=== PATIENT | female | born 1950 | race Caucasian/White ===

== ENCOUNTER 2016-05-06 05:53 | Day surgery (SDC) | payer MEDICARE, OTHER ==
[~2016-05-06] VITALS: Ht 152.4 cm; Wt 58.5 kg
[~2016-05-06 05:53] MED LIST: ASPIRIN81 MG PO; BIOTIN5 MG PO; BYSTOLIC10 MG PO; BYSTOLIC5 MG PO; CALCIUM 500 + D1 TAB PO; CARAFATE1 G PO; KLOR-CON M2020 MEQ PO; LASIX40 MG PO; LIPITOR80 MG PO; NORCO 10/325 TA1 TA1 PO; PERCOCET 10/3251 TA1 PO; PHENERGAN25 M1 PO; PLAVIX75 MG PO; PRILOSEC20 MG PO; PROBIOTIC1 EAC1 PO; PROTONIX40 MG PO; TRIGLIDE160 MG PO; VITAMIN C250 MG PO
[2016-05-06 06:53] VITALS: BP 114/71; Ht 152.4 cm; Wt 58.5 kg
[2016-05-06 06:58] LABS: HEMATOCRIT 34.6 % (36.0-48.0); HEMOGLOBIN 10.8 g/dL (12-16); MCH 29.2 pg (26.0-34.0); MCHC 31.2 g/dL (31.0-37.0); MCV 93.5 fL (80.0-100.0); MEAN PLATELET VOLUME 9.2 fL (7.4-10.4); RBC 3.7 10x6/uL (4.00-5.40); RDW 15.2 % (11.5-14.5)
--- NOTE | 2016-05-06 09:29 | NUR ---
CARE TO ULYSSES KANG RN @1810
--- NOTE | 2016-05-06 10:39 | NUR ---
1033--PT COMPLAINS OF PAIN TO ABDOMEN, RATES PAIN 09/24. NORCO 5/325 MG GIVEN PO, PT DENIES FURTHER NEEDS AT THIS TIME. DORIAN RN
--- NOTE | 2016-05-06 13:00 | NUR ---
1230--PT VOIDS WITHOUT DIFFICULTY, IV DC'D. DORIAN ROLDAN 124--DISCHARGE INSTRUCTIONS GIVEN, PT VERBALIZES UNDERSTANDING. PT OFF UNIT VIA WC. DORIAN ROLDAN
--- NOTE | 2016-06-15 10:17 | OP ---
PATIENT NAME: BRIAN THOMAS MEDICAL RECORD: [id number] :52 LOCATION:.FORMERLY [facility] ADMISSION DATE: SURGEON: CYNTHIA BARRETT MD DATE OF OPERATION: 05/06/2016 PREOPERATIVE DIAGNOSIS: Biliary dyskinesia. POSTOPERATIVE DIAGNOSES: 1. Biliary dyskinesia. 2. Symptomatic gallstones. 3. Hepatomegaly. PROCEDURES: 1. Laparoscopic cholecystectomy. 2. Intraoperative cholangiography without immediate surgeon interpretation. 3. An 18-gauge core needle liver biopsy. SURGEON: Cynthia Barrett MD EVENT MARKETING MANAGER: None. BLOOD LOSS: Minimal. ANESTHESIA: General. COMPLICATIONS: None. The risks, possible complications and alternatives to procedure were explained to the patient. She elects to proceed. The discussion specifically included, but was not limited to, bleeding requiring an emergency reoperation, infection, intestinal injury and an open procedure. OPERATIVE COURSE: The patient was conveyed to the operating room electively on 05/06/2016. General anesthesia was induced by the anesthesia staff. The abdomen was sterilely prepped and draped. A small skin cayden was accomplished in the left upper quadrant. A Veress needle was inserted through the skin cayden into the peritoneal cavity. CO2 insufflation was begun. Once a sufficient pneumoperitoneum had been achieved, a 5-mm trocar was inserted through an incision in the right upper quadrant. Under direct internal vision utilizing a television camera, a 12-mm trocar was inserted through an incision in the umbilicus. Another 5-mm trocar was inserted through an incision in the epigastrium. Another 5-mm trocar was inserted through an incision far laterally in the right upper quadrant. During insertion of the Veress needle and all trocars, there appeared to have been no injury to the bowels, any intraperitoneal or retroperitoneal structures. The indication for liver biopsy was hepatomegaly. Under laparoscopic guidance, I percutaneously accessed the right upper quadrant utilizing an 18-gauge core needle liver biopsy device. Cores were obtained over the convexity of the liver. The biopsy sites were made hemostatic with electrocautery. I grasped the fundus of the gallbladder. I advanced a cholangiogram trocar. I punctured the fundus of the gallbladder. I aspirated bile. I then injected dye. Under real time fluoroscopy, cholangiographic images were obtained. There OPERATIVE REPORT [id number] BRIAN THOMAS was some spillage of bile. The radiologist called with the interpretation. It revealed no definite filling defects within a dilated common bile duct. I aspirated bile. I then retracted the gallbladder cephalad. The infundibulum was grasped and retracted laterally. Blunt dissection was begun on the triangle of Calot. Two cystic arteries and one cystic duct were identified. These were clipped multiply and divided between clips. The gallbladder was then excised from its bed and the liver. It was placed within a bag retrieval device and was withdrawn through the umbilical fascia defect. The 12-mm trocar was replaced and the abdomen was reinsufflated. I irrigated and aspirated the right upper quadrant. There was no bleeding even at low pressure of 8. The 12-mm trocar was removed. The fascia at the 12-mm trocar site was closed with the Bao-Allan suture closure device and 0 Vicryl sutures. The skin at the umbilicus was closed with interrupted 4-0 Vicryl Rapide sutures. The rest of the trocars were removed. The other trocar sites were closed with interrupted intracuticular 3-0 Vicryls. Benzoin and Steri-Strips were applied. The patient was then extubated and conveyed to post-anesthesia care unit where she was in stable condition. TRANSINT:[id number] Voice Confirmation ID: [id number] DOCUMENT ID: [id number] CYNTHIA BARRETT MD at 1017 CC: [id number] DICTATION DATE: 05/06/16 1037 MAINTENANCE DEPARTMENT TECHNICIAN: 05/06/16 1306 [facility] 05/06/[address] [address]
--- NOTE | 2016-06-15 10:17 | HP ---
PATIENT: BRIAN THOMAS MEDICAL RECORD: [id number] ACCOUNT: [id number] LOCATION:[facility] : 52 ADMISSION DATE: 05/06/16 HISTORY AND PHYSICAL EXAMINATION CHIEF COMPLAINT: Gallbladder problems. HISTORY OF PRESENT ILLNESS: The patient has biliary dyskinesia. She is here for laparoscopic cholecystectomy, intraoperative cholangiogram, and possible liver biopsy. The risks, possible complications and alternatives to procedure were explained to the patient. She elects to proceed. The discussion specifically included, but was not limited to, bleeding requiring emergency reoperation, infection, and intestinal injury. PAST MEDICAL AND SURGICAL HISTORY: Hypertension, CABG, numerous coronary stents, occasional gastroesophageal reflux, and hyperlipidemia. ALLERGIES: CRESTOR. HOME MEDICINES: Lipitor, Biotin, Triglide. REVIEW OF SYSTEMS: Negative for CVA or seizures. Negative for diabetes or thyroid problems. PHYSICAL EXAMINATION: GENERAL: The patient does not appear acutely ill. She does not appear chronically ill. VITAL SIGNS: Reviewed. HEAD: External ears appear normal. EYES: Extraocular movements are intact. NECK: Trachea is midline. CHEST: No intercostal retractions. PULMONARY: Nonlabored and no stridor. ABDOMEN: Nontender. EXTREMITIES: No peripheral cyanosis. INTEGUMENT: No rash and no ulcerations. IMPRESSION: Biliary dyskinesia. PLAN: Laparoscopic cholecystectomy, intraoperative cholangiography, and possible liver biopsy. TRANSINT:[id number] Voice Confirmation ID: [id number] DOCUMENT ID: [id number] CYNTHIA BARRETT MD at 1017 CC: BENNY JARAMILLO M.D. and DEJUAN BALDERAS MD [id number] DICTATION DATE: 05/06/16 1043 LACTATION NURSE: 05/06/16 1102 [facility] 05/06/16 [place] [id number] [place] [id number]
== END 2016-05-06 12:45 | disposition home or self-care (01) ==
LOC: D.OPS 05:53 → D.PAN 08:00 → D.OPS 08:00
PROVIDERS: Anesthesiology
DX: K82.8 Other specified diseases of gallbladder (principal); G47.30 Sleep apnea, unspecified; K21.9 Gastro-esophageal reflux disease without esophagitis; I10 Essential (primary) hypertension

== ENCOUNTER 2016-07-05 06:13 | Day surgery (SDC) | payer MEDICARE, OTHER ==
[~2016-07-05] VITALS: Ht 152.4 cm; Wt 56.4 kg
[2016-07-05 07:05] LABS: HEMATOCRIT 29.6 % (36.0-48.0); MCH 27.4 pg (26.0-34.0); MCHC 30.4 g/dL (31.0-37.0); MCV 90.2 fL (80.0-100.0); MEAN PLATELET VOLUME 8.7 fL (7.4-10.4); RBC 3.28 10x6/uL (4.00-5.40); RDW 14.8 % (11.5-14.5); WBC 4.4 10x3/uL (4.8-10.8)
[2016-07-05] MEDS ORDERED: BAYER CHEWABLE81 MG PO (07:25)
[2016-07-05 07:28] VITALS: BP 150/90; Ht 152.4 cm; Wt 56.4 kg
--- NOTE | 2016-07-05 11:04 | NUR ---
[address] ARNOLD RYAN @ 6769. DISCUSSION OF PROCEDURE FINDINGS & POSSIBLE CAUSES OF NAUSEA. Robert DUPONT R.N. 1020 PT DRESSED. AWAKE & ALERT. GIVEN MED REC, LIST OF NSAIDS TO AVOID, RTC APPT., & D/C INSTRUCTIONS SHEET POST ENDOSCOPIC PROCEDURES. PT VOICED UNDERSTANDING. TO PRIVATE CAR PER WHEELCHAIR BY VOLUNTEER. HOME WITH MR. THOMAS. Robert DUPONT R.N.
--- NOTE | 2016-07-15 09:40 | HP ---
PATIENT: BRIAN THOMAS MEDICAL RECORD: [id number] ACCOUNT: [id number] LOCATION:[facility] : 52 ADMISSION DATE: 07/05/16 HISTORY AND PHYSICAL EXAMINATION PREOPERATIVE DIAGNOSES: Nausea and vomiting. HISTORY OF PRESENT ILLNESS: The patient has nausea and vomiting. She vomited about once a day. She has no abdominal pain. She has undergone a prior gastric bypass. She states that she had a gastric bypass when she weighs about 150 pounds. She lost down to 117 pounds and she is now on upper 125 pounds. The nausea and vomiting is a frustration for her. The patient is to undergo EGD with possible esophageal dilation. The risks, possible complications and alternatives to procedure were explained to the patient. She elects to proceed. HOME MEDICATIONS: Aspirin, Lipitor, Biotin and then calcium and Triglide. ALLERGIES: CRESTOR. SOCIAL HISTORY: Nonsmoker. PAST MEDICAL AND SURGICAL HISTORY: The patient does have heart problems, saw Dr. Harkins last week, history of CABG times 4, history of 12 coronary stents, coronary artery disease, hypertension, depression, chronic back pain, arthritis, history of abdominoplasty, carpal tunnel release, right shoulder surgery, gastric bypass, bladder surgery and hysterectomy. REVIEW OF SYSTEMS: Negative for diabetes or thyroid problems. Negative for renal disease or hepatitis. PHYSICAL EXAMINATION: GENERAL: The patient does not appear acutely ill. She does not appear chronically ill. VITAL SIGNS: Reviewed. HEAD: External ears appear normal. EYES: Extraocular movements are intact. NECK: Trachea is midline. CHEST: No intercostal retractions. PULMONARY: Nonlabored. IMPRESSION: 1. Weight loss. 2. History of gastric bypass. 3. Intractable nausea and vomiting. 4. Rule out esophageal stricture. PLAN: EGD with possible esophageal dilation. TRANSINT:[id number] Voice Confirmation ID: [id number] DOCUMENT ID: [id number] HISTORY AND PHYSICAL [id number] BRIAN THOMAS CYNTHIA BARRETT MD at 0940 CC: BENNY JARAMILLO M.D. and DEJUAN HARKINS MD [id number] DICTATION DATE: 07/05/1621 BLUE LINE OPERATOR: 07/05/16 0853 [facility] 07/05/16 [place] [id number] [place] [id number]
--- NOTE | 2016-07-15 09:40 | OP ---
PATIENT NAME: BRIAN THOMAS MEDICAL RECORD: [id number] :52 LOCATION:[facility] ADMISSION DATE: SURGEON: CYNTHIA BARRETT MD DATE OF OPERATION: 07/05/2016 PREOPERATIVE DIAGNOSES: 1. Intractable nausea and vomiting. 2. History of gastric bypass. 3. Weight loss. POSTOPERATIVE DIAGNOSES: 1. Intractable nausea and vomiting. 2. History of gastric bypass. 3. Weight loss. 4. No evidence of esophageal stricturing, rule out Eric esophagus. PROCEDURE: Esophagogastrojejunoscopy with biopsies of the gastroenteric anastomosis as well as the esophagogastric anastomosis. SURGEON: Cynthia Barrett MD IRON LAUNDER OPERATOR: None. BLOOD LOSS: Minimal. ANESTHESIA: IV sedation. COMPLICATIONS: None. The risks, possible complications and alternatives to procedure were explained to the patient. She elects to proceed. ENDOSCOPIC COURSE: The patient was conveyed to the endoscopy suite electively on 07/05/2016. IV sedation was induced by the anesthesia staff. A bite block was inserted. A gastroscope was inserted into the mouth. It was advanced easily into the hypopharynx. The esophagus was easily intubated as was the stomach and the jejunum. I was able to "hub out" the gastroscope. I saw no evidence of a jejunal stricture. I was unable to reach the jejunojejunostomy. I slowly withdrew the endoscope. Biopsies which were cold endoscopic biopsies of the gastrojejunal anastomosis were performed. Gastroesophageal biopsies were performed as well. I saw nothing that would require an esophageal dilation. The endoscope was then withdrawn under direct vision. I will see the patient in my office in 2-3 weeks. The patient may have a central reason for her recurrent nausea. TRANSINT:[id number] Voice Confirmation ID: [id number] DOCUMENT ID: [id number] OPERATIVE REPORT [id number] BRIAN THOMAS CYNTHIA BARRETT MD at 0940 CC: BENNY JARAMILLO M.D. and DEJUAN BALDERAS MD [id number] DICTATION DATE: 07/05/16 0853 NAILER MACHINE: 07/05/[address] [facility] 07/05/16 [place] [id number] [place] [address]
== END 2016-07-05 10:20 | disposition home or self-care (01) ==
LOC: D.OPS 06:13
PROVIDERS: Anesthesiology
DX: K20.8 Other esophagitis (principal); R11.2 Nausea with vomiting, unspecified; Z98.84 Bariatric surgery status; I25.10 Atherosclerotic heart disease of native coronary artery without angina pectoris; Z95.1 Presence of aortocoronary bypass graft; Z95.5 Presence of coronary angioplasty implant and graft; I10 Essential (primary) hypertension; F32.9 Major depressive disorder, single episode, unspecified; G89.29 Other chronic pain; M54.9 Dorsalgia, unspecified; M19.90 Unspecified osteoarthritis, unspecified site; Z79.82 Long term (current) use of aspirin; Z79.899 Other long term (current) drug therapy

== ENCOUNTER → 2016-08-26 16:44 | Outpatient (CLI) | payer MEDICARE, OTHER ==
[2016-07-05 07:28] VITALS: BMI 24.2
[~2016-08-26 16:44] MED LIST changes: +BAYER CHEWABLE81 MG PO
== END | disposition home or self-care (01) ==
LOC: D.MAMMO 08:30
DX: Z12.31 Encounter for screening mammogram for malignant neoplasm of breast (principal)

== ENCOUNTER 2016-09-06 09:46 | Outpatient (CLI) | payer MEDICARE, OTHER ==
[~2016-09-06] VITALS: Ht 152.4 cm; Wt 59.1 kg
[2016-09-06] MEDS ORDERED: FOLTX TABLET1 EACH PO (10:07)
[2016-09-06 10:12] VITALS: BP 127/66; Ht 152.4 cm; Wt 59.1 kg
--- NOTE | 2016-09-06 10:23 | NUR ---
1023 PT STATES HAS HAD PROLIA BEFORE, AND KNOWS POTENTIAL REACTIONS, KNOWS TO DRINK LOTS OF LIQUIDS.
== END 2016-09-06 10:23 | disposition home or self-care (01) ==
LOC: D.OPS 09:46
DX: M81.0 Age-related osteoporosis without current pathological fracture (principal)

== ENCOUNTER → 2016-09-14 07:58 | Outpatient (CLI) | payer MEDICARE, OTHER ==
[~2016-09-14] VITALS: Ht 152.4 cm; Wt 55.5 kg
--- NOTE | ~2016-09-14 | HEMODYNAMI ---
PATIENT:BRIAN THOMAS MEDICAL RECORD: [id number] : 52 LOCATION:[facility] ADMISSION DATE: 09/14/16 Generatedon:09/14/201610:32 Patient name: BRIAN THOMAS Patient #: [id number] : 1950 Date of study: 09/14/2016 Page: Of Hemodynamic Procedure Report Patient Data Patient Demographics Procedure consent was obtained First Name: BRIAN Gender: Female Last Name: MARTHA : 1950 Middle Initial: KAREN Age: 66 year(s) Patient #: [id number] Race: SSN: [id number] Additional ID: [id number] Contact details [address]: [address] [place] [address] State: [place] City: [place] Zip code: [address] Past Medical History Allergies Allergen Reaction Date Comments Reported Other allergy 01/12/2015 Crestor Other allergy 09/14/2016 crestor Admission Admission Data Admission Date: 09/14/2016 Admission Time: 7:58 Arrival Date: 09/14/2016 Arrival Time: 9:30 Admit Source: Other Insurance Payor: Medicare Height (in.): 60 BSA: 1.52 (m2) Height (cm.): 152.4 BMI: 24.02 (kg/m2) Weight (lbs.): 123 Weight (kg.): 55.79 Lab Results Lab Result Date: 09/14/2016 Lab Result Time: 0:00 Biochemistry Name Units Result Min Max BUN mg/dl 8 --(*---)-- 7 18 Creatinine mg/dl 0.8 --(-*--)-- 0.6 1.3 CBC Name Units Result Min Max Hemoglobin g/dl 11.8 *-(----)-- 13.5 17.5 Procedure Procedure Types Cath Procedure Diagnostic Procedure LHC LHC w/Coronaries w/Grafts PCI Procedure Coronary Stent Initial x2 PTCA Additional Miscellaneous Procedures Moderate Sedation up to 45 minutes Procedure Description Procedure Date Procedure Date: 09/14/2016 Procedure Start Time: 9:59 Procedure End Time: 10:30 Procedure Staff Name Function Katiana Shore RT Scrub Nikhil Woodruff RN Nurse Tammy Carmichael RT Monitor Rina Mercedes RN Nurse Diego Harkins MD Performing Physician Indication Angina Procedure Data Cath Procedure Fluoroscopy Diagnostic fluoroscopy Total fluoroscopy Time: 9.5 time: 9.5 min min Diagnostic fluoroscopy Total fluoroscopy dose: dose: 528.5 mGy 528.5 mGy Contrast Material Contrast Material Type Amount (ml) Isovue 300 199 Entry Location Entry Primary Successful Side Size Upsize Upsize Entry Closure Succes sful Closure Location (Fr) 1 (Fr) 2 (Fr) Remarks Device Remarks Femoral Right 5 Fr 6 Fr Exoseal artery Short Estimated blood loss: 5 ml Diagnostic catheters Device Type Used For End Catheter Placement Cordis 5Fr Pigtail LV Angiography Catheter (MP) Cordis 5Fr JL 4.0 Left Coronary Catheter (MP) Angiography Diagnostic Infinity 5Fr Left Coronary JL 3.5 catheter Angiography Cordis 5Fr 3DRC Catheter Right Coronary (MP) Angiography Procedure Complications No complications Procedure Medications Medication Administration Route Dosage 0.9% NaCl I.V. 100 ml/hr Heparin Flush Bag added to field 2 bags (1000units/500ml NS) Oxygen NC 2 l/min Lidocaine 2% added to field 20 Versed I.V. 1 mg Fentanyl I.V. 50 mcg Versed I.V. 1 mg Fentanyl I.V. 50 mcg Heparin Bolus I.V. 4000 units Hemodynamics Rest BSA: 1.52 (m2) HGB: 11.8 (g/dl) O2 Consumption: Estimated: 134.64 (ml/min) O2 Co nsumption indexed: Estimated:88.58 (ml/min/m) Heart Rate: 57 (bpm) Pressure Samples Time Site Value (mmHg) Purpose Heart Use Rate(bpm) 10:02 LV 68/5,21 Snapshot 74 Snapshots Pre Cath Intra NCS Post Cath Vital Signs Time Heart Resp SPO2 NIBP (mmHg) Rhythm Pain Sedation Rate (ipm) (%) Status Level (bpm) 9:26:56 56 19 100 176/90(151) NSR 0 (11) 10(A) , No pain 9:31:18 57 16 100 172/93(148) NSR 0 (11) 10(A) , No pain 9:35:38 63 17 100 149/77(112) NSR 0 (11) 10(A) , No pain 9:40:01 64 19 98 137/75(116) NSR 0 (11) 10(A) , No pain 9:44:17 66 19 98 136/76(115) NSR 0 (11) 10(A) , No pain 9:48:33 66 20 97 139/74(108) NSR 0 (11) 10(A) , No pain 9:52:47 70 20 97 142/76(113) NSR 0 (11) 9(A) , No pain 9:57:05 64 17 99 131/76(106) NSR 0 (11) 9(A) , No pain 10:01:21 57 18 100 142/72(112) NSR 0 (11) 9(A) , No pain 10:05:37 71 19 98 129/74(109) NSR 0 (11) 9(A) , No pain 10:09:53 71 19 99 124/70(105) NSR 0 (11) 9(A) , No pain 10:14:09 72 16 99 117/68(97) NSR 0 (11) 9(A) , No pain 10:18:17 75 16 99 130/77(113) NSR 0 (11) 9(A) , No pain 10:22:31 74 20 99 131/74(110) NSR 0 (11) 9(A) , No pain 10:26:45 69 10 100 128/77(111) NSR 0 (11) 10(A) , No pain 10:30:24 74 12 99 131/80(107) NSR 0 (11) 10(A) , No pain Medications Time Medication Route Dose Verified Delivered Reason Notes Effectiveness by by 9:26:15 0.9% NaCl I.V. 100 Rina Rina for ml/hr Daren Daren antiplatelet RN RN therapy 9:26:25 Heparin Flush added 2 Rina Rina used for Bag to bags Daren Daren procedure (1000units/500ml field RN RN NS) 9:26:33 Oxygen NC 2 Rina Rina used for l/min Daren Daren wire wrapping machine operator RN 9:26:44 Lidocaine 2% added 20ml Rina Flynn used for to vial Daren Mercedes procedure field RN RN 9:47:25 Versed I.V. 1 mg Rina Rina for sedation Daren Mercedes RN RN 9:47:33 Fentanyl I.V. 50 Rina Rina for sedation mcg Daren Mercedes RN RN 10:02:01 Versed I.V. 1 mg Rina Rina for sedation Daren Mercedes RN RN 10:02:05 Fentanyl I.V. 50 Rina Rina for sedation mcg Daren Mercedes RN RN 10:06:28 Heparin Bolus I.V. 4000 Diego Rina Per verified units Shahana Mercedes physician with dr YULI harkins Procedure Log Time Note 8:34:53 Informed consent obtained and on chart 8:35:04 Admit Source: Other 8:35:19 Arrival Date: 09/14/2016 9:30:00 AM 8:35:25 Insurance Payor : Medicare 8:35:49 Patient Height : 152.4 cm 8:36:06 Patient Weight : 55.79 kg 8:48:10 Diagnostic Cath Status : Elective 8:48:43 Indication : Angina 8:48:57 Nikhil Woodruff RN sent for patient. Start room use. 8:48:58 Time tracking: Regular hours 8:49:03 Plan of Care:Hemodynamics will remain stable., Cardiac rhythm will remain stable., Comfort level will be maintained., Respiratory function will remain adequate., Patient/ family verbilizes understanding of procedure., Procedure tolerated without complication., Recovers from procedure without complications.. 9:20:49 Lab Result : Hemoglobin 11.8 g/dl 9:20:49 Lab Result : Creatinine 0.8 mg/dl 9:20:49 Lab Result : BUN 8 mg/dl 9:20:56 Patient received from Pre/Post Procedure Room to [facility] 3 Alert and oriented. Tansferred to table in Supine position. 9:20:57 Warm blankets applied, and nicholas hugger turned on for patient comfort. 9:20:57 Correct patient and procedure confirmed by team. 9:20:58 ECG and BP/O2 sat monitors applied to patient. 9:25:40 Vital chart was started 9:26:15 0.9% NaCl 100 ml/hr I.V. was administered by Rina Daren RN; for antiplatelet therapy; 9:26:25 Heparin Flush Bag (1000units/500ml NS) 2 bags added to field was administered by Rina Mercedes RN; used for procedure; 9::33 Oxygen 2 l/min NC was administered by Rina Mercedes RN; used for procedure; 9::44 Lidocaine 2% 20ml vial added to field was administered by Rina Mercedes RN; used for procedure; 9:29:24 Baseline sample Acquired. 9::28 Rhythm: sinus rhythm 9::29 Full Disclosure recording started 9:29:38 H&P Date Dictated: 09/06/2016 Within 30 days and on chart., H&P Addendum completed by physician on day of procedure. (MUST COMPLETE FOR ALL OUTPATIENTS). 9:29:39 Pre-procedure instructions explained to patient. 9:29:39 Pre-op teaching completed and patient verbalized understanding. 9:29:40 Family in waiting room. 9:29:41 Patient NPO since Midnight. 9:29:52 Patient allergic to Other allergycrestor 9:29:56 Is the patient allergic to Iodine/contrast media? No. 9:29:57 Was the patient premedicated? No 9:29:58 Is patient on blood thinner?Yes 9:30:00 ACC The patient was administered the following blood thiners within the last 24 hours: ACCPlavix 9:30:03 Patient diabetic? No. 9:30:06 Previous problem with sedation/anesthesia? No ? 9:30:08 Snore? Yes 9:30:08 Sleep apnea? Yes 9:30:09 Deviated septum? No 9:30:10 Opens mouth fully? Yes 9:30:11 Sticks out tongue? Yes 9:30:31 Airway obstruction? No ? 9:30:33 Dentures? No ? 9:30:41 Pre procedure: right dorsailis pedis pulse 1+ Palpable, but thready & weak; easily obliterated 9:30:44 Patient pain scale 0/10 ?. 9:30:54 IV patent on arrival in left forearm with 0.9% NaCl at O. 9:30:57 Lab results completed and on chart. 9:31:01 Right groin area was prepped with chlora-prep and draped in sterile fashion 9:31: Alarms reviewed by R. N. 9:: Sharps counted by scrub and verified by R.N. 9:42:31 Use device set Femoral Dx 9:42:32 Acist Syringe opened to sterile field. 9:42:33 Bag Decanter opened to sterile field. 9:42:33 Medline Cath Pack opened to sterile field. 9:42:34 Terumo 5Fr [place] Sheath opened to sterile field. 9:42:34 St Anmol 260cm J .035 wire opened to sterile field. 9:42:35 Acist Hand Control opened to sterile field. 9:42:36 Acist Manifold opened to sterile field. 9:42:36 Diagnostic Infinity 5Fr Multipack catheter opened to sterile field. 9:42:37 Tegaderm 4 x 4 opened to sterile field. 9:46:02 Physician arrived 9:46: --------ALL STOP TIME OUT------ 9:46:02 Final Timeout: patient, procedure, and site verified with staff and physician. All members of the team are in agreement. 9:46:04 Right groin site verified by team. 9:46:26 Physical assessment completed. ASA score P 2 - A patient with mild systemic disease as per Diego Harkins MD. 9:46:29 Sedation plan: IV Moderate Sedation Versed, Fentanyl 9:46:40 Zero performed for pressure channel P1 9:47:25 Versed 1 mg I.V. was administered by Rina Mercedes RN; for sedation; 9:47:33 Fentanyl 50 mcg I.V. was administered by Rina Mercedes RN; for sedation; 9:59:41 Procedure started. 9:59:48 Local anesthetic to right femoral artery with Lidocaine 2% by Katiana Shore RT(R).INITIAL ACCESS ONLY 9:59:57 A 5 Fr sheath was inserted into the Right Femoral artery 10:01:42 A Cordis 5Fr Pigtail Catheter (MP) was advanced over the wire and used for LV Angiography. 10:02:01 Versed 1 mg I.V. was administered by Rina Mercedes RN; for sedation; 10:02:05 Fentanyl 50 mcg I.V. was administered by Rina Mercedes RN; for sedation; 10:02:09 LV hemodynamics recorded. 10:02:10 LV gram done using CARREON 10:02:13 Injector settings: Ml/sec: 5, Volume: 15, 10:02:18 EF : 55 % 10:02:24 Catheter removed. 10:02:31 A Cordis 5Fr JL 4.0 Catheter (MP) was advanced over the wire and used for Left Coronary Angiography. 10:03:23 Catheter removed. unable to cannulate vessel. 10:03:38 A Diagnostic Infinity 5Fr JL 3.5 catheter was advanced over the wire and used for Left Coronary Angiography. 10:04:04 LCA angiography performed. 10:04:07 Injector settings: Ml/sec: 3, Volume: 6, 10:04:37 Catheter removed. 10:04:44 A Cordis 5Fr 3DRC Catheter (MP) was advanced over the wire and used for Right Coronary Angiography. 10:05:08 Terumo 6Fr [place] Sheath opened to sterile field. 10:05:09 iGuiders BasixCompak Inflation Kit opened to sterile field. 10:05:10 Calix Whisper J 300cm 0.014 guide wire opened to sterile field. 10:05:44 HERNANDES to LAD angiography performed. 10:05:56 RCA angiography performed. 10:06:25 Calix Whisper J 300cm 0.014 guide wire opened to sterile field. 10:06:28 Heparin Bolus 4000 units I.V. was administered by Rina Mercedes RN; Per physician; verified with dr harkins 10:06:32 Injector settings: Ml/sec: 3, Volume: 6, 10:06:33 Catheter removed. 10:07:25 Proceeding to intervention. 10:07:33 Sheath upsized to a 6 Fr Short. 10:08:18 Medtronic Launcher 6Fr 3DRC guide catheter opened to sterile field. 10:08:28 6 Fr 3drc guide catheter was inserted over the wire 10:08:49 ? wire advanced. 10:09:43 Inflation Number: 1 A Medtronic Resolute 3.0 X 18 stent was prepped and advanced across the Mid RCA. The stent was deployed at 17 PATTIE for 0:10 (min:sec). 10:10:20 Inflation number: 2 The stent balloon was then re-inflated across the Mid RCA to 17 PATTIE for 0:10 (min:sec). 10:10:35 Inflation number: 2 The stent balloon was then re-inflated across the Mid RCA to 17 PATTIE for 0:10 (min:sec). 10:10:55 Medtronic Launcher 6Fr EBU 3.0 SH guide catheter opened to sterile field. 10:11:06 Stent catheter was removed intact over wire. 10:11:07 Wire removed. 10:11:07 Guide catheter removed. 10:11:16 6 Fr ebu 3 sh guide catheter was inserted over the wire 10:13:11 first whisper wire advanced down Lcx 10:16:09 caesar whisper wire advanced down Om 10:16:55 Inflation number: 1 The stent balloon was then re-inflated across the 1st Ob Jaqueline to 17 PATTIE for 0:10 (min:sec). 10:18:23 Balloon removed over the wire. 10:19:12 Inflation Number: 2 A Medtronic Resolute 3.0 X 9 stent was prepped and advanced across the 1st Ob Jaqueline. The stent was deployed at 13 PATTIE for 0:10 (min:sec). 10:19:34 Stent catheter was removed intact over wire. 10:20:35 wire removed from OM 10:21:21 Inflation number: 1 A Euphora 1.5 x 12 balloon was prepped and advanced across the Mid CX, then inflated to 21 PATTIE for 0:10 (min:sec). 10:21:49 Balloon removed over the wire. 10:22:45 Inflation number: 2 The stent balloon was then re-inflated across the Mid CX to 7 PATTIE for 0:10 (min:sec). 10:23:26 Inflation number: 3 The stent balloon was then re-inflated across the Mid CX to 11 PATTIE for 0:10 (min:sec). 10:23:55 Balloon removed over the wire. 10:24:10 Wire removed. 10:24:10 Guide catheter removed. 10:24:18 Cordis 6Fr Exoseal opened to sterile field. 10:25:35 Sheath removed intact; hemostasis achieved with Exoseal to the Right Femoral artery. 10:25:40 Procedure ended.(Physican Out) 10:25:52 Fluoroscopy time 09.50 minutes. 10:25:58 Flurop Dose total: 528.5 10:25:58 Fluoroscopy dose: 528.5 mGy 10:26:04 Contrast amount:Isovue 300 199ml. 10:26:06 Sharps counted by scrub and verified by R.N. 10:26:07 Insertion/operative site no bleeding no hematoma. 10:26:09 Post-op/insertion site Right Femoral artery dressed using a 4 x 4 and Tegaderm. 10:26:12 Post right femoral artery:stable 10:26:14 Post Procedure Pulses reassessed and unchanged 10:26:16 Post procedure rhythm: unchanged. 10::20 Estimated blood loss: 5 ml 10::22 Post procedure instruction explained to patient.Patient verbalizes understanding. 10::22 Patient needs reinforcement of post procedure teaching. 10:29:25 Procedure type changed to Cath procedure, Diagnostic procedure, LHC, LHC w/Coronaries w/Grafts, PCI procedure, Coronary Stent Initial x2, PTCA Additional, Miscellaneous Procedures, Moderate Sedation up to 45 minutes 10::41 Procedure and supply charges have been captured, reviewed, submitted and are correct. 10:29:45 Procedure Complication : No complications 10:29:48 Vital chart was stopped 10::49 See physician's report for complete and final results. 10:29:52 Report given to Pre/Post Procedure Room. 10:29:57 Patient transfered to Pre/Post Procedure Room with Stretcher. 10:29:59 Procedure ended. 10:29:59 Full Disclosure recording stopped 10:30:06 ACC-PCI Only Patient was given prescriptions, or instructed by Diego Harkins MD to start/continue the following medications upon discharge: Plavix 10:30:08 End room use (Document Last) Intervention Summary Intervention Notes Time ActionType Lesion and Equipment Action# Pressure Duration Attributes Used 10:09:43 Place stent Mid RCA Medtronic 1 17 00:10 Resolute 3.0 X 18 stent 10:10:20 Reinflate Mid RCA Medtronic 2 17 00:10 stent Resolute balloon 3.0 X 18 stent 10:10:35 Reinflate Mid RCA Medtronic 2 17 00:10 stent Resolute balloon 3.0 X 18 stent 10:16:55 Reinflate 1st Ob Jaqueline Medtronic 1 17 00:10 stent Resolute balloon 3.0 X 18 stent 10:19:12 Place stent 1st Ob Jaqueline Medtronic 2 13 00:10 Resolute 3.0 X 9 stent 10:21:21 Inflate Mid CX Euphora 1 21 00:10 balloon 1.5 x 12 balloon 10:22:45 Reinflate Mid CX Medtronic 2 7 00:10 stent Resolute balloon 3.0 X 18 stent 10:23:26 Reinflate Mid CX Medtronic 3 11 00:10 stent Resolute balloon 3.0 X 18 stent Device Usage Item Name Manufacture Quantity Catalog Hospital Part Current Minimal Lot# / Number Charge Number Stock Stock Serial# Code Acist Acist 1 18115 047083 121664 715637 20 Coupoplaces [employer] Bag Microtek 1 2002S 263114 66692 684501 5 W[employer] Medline Cardinal 1 [id number] 560512 11336 748027 5 Cath Pack Health Terumo 5Fr Terumo 1 [id number] 162734 466640 662496 [address] Anmol 1 369867 361449 251953 049002 30 260cm J .035 wire Acist Hand Acist 1 65727 624821 736394 849156 5 [employer] Inc Acist Acist 1 16739 301693 499155 401790 5 [employer]ised[employer] Diagnostic Cardinal 1 [id number] 174979 61204 086221 30 Infinity Health 5Fr Multipack catheter Tegaderm 4 3M 1 1626W 841464 069939 144693 5 x 4 Cordis 5Fr Cardinal 1 619648 5 Pigtail Health Catheter (MP) Cordis 5Fr Cardinal 1 182732 5 JL 4.0 Health Catheter (MP) Diagnostic Cardinal 1 [id number] 102633 858126 301930 5 Infinity Health 5Fr JL 3.5 catheter Cordis 5Fr Cardinal 1 675421 5 3DRC Health Catheter (MP) Terumo 6Fr Terumo 1 [id number] 070984 345750 914310 40 [place] Sheath Merit Merit 1 [id number] 095212 552837 281537 15 [employer] Medical Inflation Kit Calix Calix 2 [id number] 602333 829057 169833 5 Whisper J Vascular 300cm 0.014 guide wire Medtronic Medtronic 1 [id number] 908897 317731 451857 1 Launcher 6Fr 3DRC guide catheter Medtronic Medtronic 1 [id number] 556728 316186 3 [id number] Resolute 3.0 X 18 stent Medtronic Medtronic 1 [id number] 749637 85284 116821 0 Launcher 6Fr EBU 3.0 SH guide catheter Medtronic Medtronic 1 [id number] 744361 946950 4 [id number] Resolute 3.0 X 9 stent Euphora 1.5 Medtronic 1 [id number] 916960 939652 131006 5 [id number] x 12 balloon Cordis 6Fr Cardinal 1 EX600 687016 777251 368956 10 [facility] SHIMAUMA Print System Signature Audit Bonner Stage Time Signature Unsigned Intra-Procedure 09/14/2016 Katiana Shore 10:32:16 AM RT(R) Signatures Monitor : Tammy Carmichael Signature : RT Date : Time : [address] [place] [address]
[~2016-09-14 07:58] MED LIST changes: +FOLTX TABLET1 EACH PO; +VITAMIN B-1100 M1 PO
[2016-09-14 08:30] VITALS: BP 133/67; Ht 152.4 cm; Wt 55.5 kg
[2016-09-14 08:39] LABS: BASOPHILS 0.3 % (0-2); HEMATOCRIT 37.4 % (36.0-48.0); HEMOGLOBIN 11.8 g/dL (12-16); LYMPHOCYTES 21.6 % (15-50); MCH 27.8 pg (26.0-34.0); MCHC 31.6 g/dL (31.0-37.0); MCV 88.2 fL (80.0-100.0); MEAN PLATELET VOLUME 9.3 fL (7.4-10.4); MONOCYTES 13.2 % (2-11); NEUTROPHILS 61.9 % (40-80); RBC 4.24 10x6/uL (4.00-5.40); RDW 17.3 % (11.5-14.5); WBC 3.7 10x3/uL (4.8-10.8)
[2016-09-14 08:50] LABS: PLATELET COUNT 385 10x3/uL (130-400)
[2016-09-14 08:52] LABS: CALC OSMOLALITY 276 mosm/kg (275-300); CALCIUM 9.3 mg/dL (8.5-10.1); CARBON DIOXIDE 26.9 mmol/L (21.0-32.0); CHLORIDE - SERUM 105 mmol/L (98-107); CREATININE - SERUM 0.8 mg/dL (0.6-1.3); GLUCOSE 91 mg/dL (74-106); POTASSIUM - SERUM 4.3 mmol/L (3.5-5.1); SODIUM 140 mmol/L (136-145); UREA NITROGEN 8 mg/dL (7-18); eGFR NON AFRICAN AMERICAN 76 mL/min (90-120)
--- NOTE | 2016-09-14 11:00 | NUR ---
1100 VSS WITH CHEST PAIN DENIED 6 FR EXOSEAL R/GROIN CDI NO BLEEDING NO HEMATOMA NOTED. INSTRUCTED PATIENT TO KEEP HEAD FLAT ON PILLOW WITH RLE STRAIGHT
--- NOTE | 2016-09-14 12:00 | NUR ---
NO CHANGE IN ASSESSMENT FAMILY AT SIDE WITH CHEST PAIN DENIED R/GROIN CDI
--- NOTE | 2016-09-14 12:43 | NUR ---
R/GROIN CDI NO BLEEDING NO HEMATOMA NOTED PATIENT CONTINUES TO SLEEP NO DISTRESS NOTED
--- NOTE | 2016-09-14 13:50 | NUR ---
HOB ELEVATED 30 DEGREES. RIGHT GROIN 6F EXOSEAL CDI, NO BLEEDING NOTED.
--- NOTE | 2016-09-14 14:05 | NUR ---
PIV REMOVED WITH DRESSING APPLIED. PATIENT DENIED CHEST PAIN WILL START DISCHARGE ORDERES
--- NOTE | 2016-09-14 14:40 | NUR ---
VERBAL AND WRITTEN DISCHARGE GONE OVER WITH PATIENT AND CHEST PAIN IS DENIED AND 6 FR EXOSEAL R/GROIN CDI NO BLEEDING NO HEMATOMA NOTED. PATIENT TRANSPORTED VIA WC TO PARKING FOR TO DRIVE HOME
--- NOTE | 2016-09-15 13:29 | OP ---
PATIENT NAME: BRIAN THOMAS MEDICAL RECORD: [id number] :52 LOCATION:D.CAT ADMISSION DATE: SURGEON: DEJUAN BALDERAS MD DATE OF OPERATION: 09/14/2016 PROCEDURE: 1. PTCA stent RCA. 2. PTCA stent left circumflex, first obtuse marginal. 3. PTCA left circumflex. 4. Left heart catheterization. 5. Selective coronary angiography. 6. Left ventriculogram. INDICATION: Angina and coronary artery disease. PROCEDURE: After informed consent was obtained and after detailed explanation of risks, benefits as well as alternative therapies, the patient elected to proceed with angiogram and angioplasty. The right femoral area was prepped and draped in normal sterile fashion. The right femoral artery was cannulated via modified Seldinger technique with placement of 6-Uzbek sheath. All catheters exchanged through this sheath. FINDINGS: The left ventriculogram was performed in standard 30-degree CARREON view, reveals good cardiac wall motion throughout all segments. Overall ejection fraction estimated at 50%. SELECTIVE CORONARY ANGIOGRAPHY: 1. Left main showed no significant angiographic disease. 2. Left anterior descending has previously placed stents; these are widely patent with no significant restenosis. No disease elsewise throughout the LAD or its branches. 3. Left circumflex has previously placed stents. There is 90% in-stent restenosis of the first obtuse marginal. 4. The right coronary has previously placed stents. There is 80% in-stent restenosis in the mid vessel. PTCA STENT OF THE RCA: The stent used was a 3.0 x 18 mm Resolute. Result was 0% residual stenosis. PTCA STENT OF THE LEFT CIRCUMFLEX: First obtuse marginal was addressed with a 3.0 x 9 mm Resolute, it caused plaque shift into the circumflex. The circumflex was addressed with a 3.0 x 18 mm stent balloon. Result was 0% residual stenosis. OVERALL IMPRESSION: Successful percutaneous transluminal coronary angioplasty stent of the right coronary artery and left circumflex going from 80% to 90% initial stenosis to 0% residual. TRANSINT:[id number] Voice Confirmation ID: [id number] DOCUMENT ID: [id number] OPERATIVE REPORT [id number] BRIAN THOMAS DEJUAN BALDERAS MD at 1326 CC: [id number] DICTATION DATE: 09/14/16 7102 MERCURY PURIFIER: 09/14/16 1359 DEP CLI 09/14/16 [id number] [facility] [place] [address]
== END | disposition home or self-care (01) ==
LOC: D.CATH 07:58
PROVIDERS: Internal Medicine Interventional Cardiology
DX: I25.119 Atherosclerotic heart disease of native coronary artery with unspecified angina pectoris (principal)
CPT/HCPCS: 93458; C9600 ×2

== ENCOUNTER 2016-10-13 06:59 | Outpatient (CLI) | payer MEDICARE, OTHER ==
[~2016-10-13] VITALS: Ht 152.4 cm; Wt 55.3 kg
[2016-10-13 08:00] VITALS: Ht 152.4 cm; Wt 55.3 kg
[2016-10-13 09:08] LABS: BASOPHILS 0.6 % (0-2); EOSINOPHILS 2.8 % (0-7); HEMATOCRIT 35.6 % (36.0-48.0); HEMOGLOBIN 11.4 g/dL (12-16); LYMPHOCYTES 18.7 % (15-50); MCH 28.4 pg (26.0-34.0); MCV 88.8 fL (80.0-100.0); MEAN PLATELET VOLUME 9.2 fL (7.4-10.4); MONOCYTES 11.3 % (2-11); NEUTROPHILS 66.6 % (40-80); PLATELET COUNT 423 10x3/uL (130-400); RBC 4.01 10x6/uL (4.00-5.40); WBC 3.3 10x3/uL (4.8-10.8)
[2016-10-13 09:25] LABS: CALC OSMOLALITY 281 mosm/kg (275-300); CALCIUM 9.5 mg/dL (8.5-10.1); CARBON DIOXIDE 26.9 mmol/L (21.0-32.0); CHLORIDE - SERUM 106 mmol/L (98-107); CREATININE - SERUM 0.8 mg/dL (0.6-1.3); GLUCOSE 91 mg/dL (74-106); POTASSIUM - SERUM 3.9 mmol/L (3.5-5.1); SODIUM 142 mmol/L (136-145); UREA NITROGEN 11 mg/dL (7-18); eGFR NON AFRICAN AMERICAN 76 mL/min (90-120)
[2016-10-13 09:28] LABS: APTT 31.4 SECONDS (22.8-39.4); INR 1.01 (0.85-1.17); PROTIME 13.2 SECONDS (11.6-15.0)
--- NOTE | 2016-10-13 10:30 | NUR ---
RECEIVED FROM IR POST DRAINAGE OF HEMATOMA RIGHT FLANK. RIGHT FLANK DRESSING C/D/I. AWAKENS EASILY TO VERBAL STIMULI. DENIES PAIN. SEE PROCEDURE VITAL SIGN SHEET FOR VITAL SIGNS.
[2016-10-13 15:19] LABS: LYMPH - BF 17 %; MACROPHAGES BF 3 %; NEUT - BF 80 %
== END 2016-10-13 12:15 | disposition home or self-care (01) ==
LOC: D.OPS 06:59 → D.RAD 09:00 → D.OPS 09:00
PROVIDERS: Radiology Diagnostic Radiology; Specialist
DX: K66.1 Hemoperitoneum (principal); Z01.812 Encounter for preprocedural laboratory examination

== ENCOUNTER 2016-12-30 09:02 | Outpatient (CLI) | payer MEDICARE, OTHER ==
[~2016-12-30] VITALS: Ht 152.4 cm; Wt 54.1 kg
--- NOTE | ~2016-12-30 | OP ---
PATIENT NAME: BRIAN THOMAS MEDICAL RECORD: [id number] :52 LOCATION:D.CAT ADMISSION DATE: SURGEON: DEJUAN BALDERAS MD DATE OF OPERATION: 12/30/2016 PROCEDURE: Four-vessel carotid vertebral angiography. INDICATION: Unsteady gait, carotid vascular disease. DESCRIPTION OF PROCEDURE: After informed consent was obtained and after detailed explanation of risks, benefits as well as alternative therapies, the patient elected to proceed with angiogram. The right femoral area had a preexisting sheath from coronary intervention. All catheters exchanged through this sheath. FINDINGS: There was a subselection of each subclavian as well as the left carotid. RIGHT SIDE: The common internal and external carotids have mild plaquing, none greater than 20%, no flow-limiting stenosis. Vertebral artery has no significant disease. LEFT SIDE: The common internal and external carotids have mild plaquing, none greater than 20%, no flow-limiting stenosis. Vertebral artery has no significant disease. OVERALL IMPRESSION: Minimal carotid vascular disease is present. Symptomatology is not secondary to carotid vascular insufficiency. TRANSINT:[id number] Voice Confirmation ID: [id number] DOCUMENT ID: [id number] DEJUAN BALDERAS MD CC: [id number] DICTATION DATE: 12/30/16 1405 NITROGEN OPERATOR: 12/30/16 1642 [facility] [address] [id number]
--- NOTE | ~2016-12-30 | HEMODYNAMI ---
PATIENT:BRIAN THOMAS MEDICAL RECORD: [id number] : 52 LOCATION:[facility] ADMISSION DATE: 12/30/16 Generatedon:12/30/201614:04 Patient name: BRIAN THOMAS Patient #: [id number] : 1950 Date of study: 12/30/2016 Page: Of Hemodynamic Procedure Report Patient Data Patient Demographics Procedure consent was obtained First Name: BRIAN Gender: Female Last Name: MARTHA : 1950 Middle Initial: KAREN Age: 66 year(s) Patient #: [id number] Race: SSN: [id number] Additional ID: [id number] Contact details Address: [address] [place] [address] State: [place] City: [place] Zip code: [address] Past Medical History Allergies Allergen Reaction Date Comments Reported Other allergy 01/12/2015 Crestor Other allergy 09/14/2016 crestor Admission Admission Data Admission Date: 12/30/2016 Admission Time: 9:02 Procedure Procedure Types Cath Procedure Diagnostic Procedure LHC LHC w/Coronaries w/Grafts FFR/IVUS Intra-Coronary IVUS Initial PCI Procedure Coronary Stent Initial x2 PTCA Initial PTCA Additional Miscellaneous Procedures Moderate Sedation up to 15 minutes Peripheral Cath Diagnostic Procedure Cath Peripheral Four Vessel Arteriogram Procedure Description Procedure Date Procedure Date: 12/30/2016 Procedure Start Time: 13:14 Procedure End Time: 13:59 Procedure Staff Name Function Diego Harkins MD Performing Physician Galen Katz RN Nurse Tammy Carmichael RT Monitor Clair Munson RT Scrub Joe Norman RT Scrub Procedure Data Cath Procedure Fluoroscopy Diagnostic fluoroscopy Total fluoroscopy Time: time: 11.5 min 11.5 min Diagnostic fluoroscopy Total fluoroscopy dose: dose: 1417 mGy 1417 mGy Contrast Material Contrast Material Type Amount (ml) Isovue 300 156 Entry Location Entry Primary Successful Side Size Upsize Upsize Entry Closure Succes sful Closure Location (Fr) 1 (Fr) 2 (Fr) Remarks Device Remarks Femoral Right 5 Fr 6 Fr Exoseal artery Short Estimated blood loss: 10 ml Diagnostic catheters Device Type Used For End Catheter Placement Cordis 5Fr Pigtail Procedure Catheter (MP) Cordis 5Fr JL 4.0 Procedure Catheter (MP) Diagnostic Infinity 5Fr Procedure JL 3.5 catheter Cordis 5Fr 3DRC Catheter Procedure (MP) Procedure Complications No complications Procedure Medications Medication Administration Route Dosage 0.9% NaCl I.V. 100 ml/hr Oxygen NC 2 l/min Heparin Flush Bag added to field 2 bags (1000units/500ml NS) Lidocaine 2% added to field 20 Versed I.V. 1 mg Fentanyl I.V. 50 mcg Versed I.V. 0.5 mg Fentanyl I.V. 25 mcg Heparin Bolus I.V. 5000 units Versed I.V. 0.5 mg Fentanyl I.V. 25 mcg Versed I.V. 0.5 mg Fentanyl I.V. 25 mcg Hemodynamics Rest Heart Rate: 55 (bpm) Snapshots Pre Cath Intra NCS Post Cath Vital Signs Time Heart Resp SPO2 etCO2 SU2aeqd NIBP (mmHg) Rhythm Pain Sedation Rate (ipm) (%) (mmHg) (mmHg) Status Level (bpm) 12:55:26 62 16 100 0 0 151/80(101) NSR 0 (11) 10(A) , No pain 13:00:06 63 13 99 0 0 125/63(85) NSR 0 (11) 9(A) , No pain 13:04:45 62 14 99 0 0 131/68(87) NSR 0 (11) 9(A) , No pain 13:09:27 62 14 99 0 0 114/62(88) NSR 0 (11) 9(A) , No pain 13:14:04 63 15 99 0 0 117/67(84) NSR 0 (11) 10(A) , No pain 13:18:41 62 16 99 0 0 125/71(86) NSR 0 (11) 10(A) , No pain 13:23:19 62 15 99 0 0 126/68(95) NSR 0 (11) 10(A) , No pain 13:27:58 67 21 99 0 0 138/74(114) NSR 0 (11) 9(A) , No pain 13:32:40 64 16 99 0 0 123/66(92) NSR 0 (11) 9(A) , No pain 13:37:19 70 16 99 0 0 126/74(93) NSR 0 (11) 9(A) , No pain 13:41:59 64 24 99 0 0 126/68(95) NSR 0 (11) 9(A) , No pain 13:46:38 64 16 99 0 0 133/71(104) NSR 0 (11) 10(A) , No pain 13:51:18 64 14 100 0 0 139/69(105) NSR 0 (11) 10(A) , No pain 13:56:01 63 22 99 0 0 146/67(107) NSR 0 (11) 10(A) , No pain 13:58:29 62 10 99 0 0 141/72(106) NSR 0 (11) 10(A) , No pain Medications Time Medication Route Dose Verified Delivered Reason Notes Effectiveness by by 12:51:30 0.9% NaCl I.V. 100 Michael Michael Per physician ml/hr Gianna Ktaz RN RN 12:51:46 Oxygen NC 2 Michael Michael Per physician l/min Gianna Katz RN RN 12:52:03 Heparin Flush added 2 Michael Michael used for Bag to bags Gianna Katz procedure (1000units/500ml [facility] RN RN NS) 12:52:30 Lidocaine 2% added 20ml Michael Michael for local to vial Gianna Katz anesthetic field ROLDAN RN 13:12:16 Versed I.V. 1 mg Michael Michael for sedation Gianna Katz RN RN 13:12:30 Fentanyl I.V. 50 Michael Michael for sedation mcg Gianna Katz RN RN 13:15:26 Versed I.V. 0.5 Michael Michael for sedation mg Gianna Katz RN RN 13:17:18 Fentanyl I.V. 25 Michael Michael for sedation mcg Gianna Katz RN RN 13:29:39 Heparin Bolus I.V. 5000 Michael Michael for units Lorkeegan ruiz RN RN 13:46:56 Versed I.V. 0.5 Michael Michael for sedation mg Gianna Katz RN RN 13:47:09 Fentanyl I.V. 25 Michael Michael for sedation mcg Gianna Katz RN RN 13:51:56 Versed I.V. 0.5 Michael Michael for sedation mg Gianna Katz RN RN 13:52:06 Fentanyl I.V. 25 Michael Michael for sedation mcg Gianna Katz RN senior energy analyst Log Time Note 12:30:52 Tammy Amol RT(R) sent for patient. Start room use. 12:31:14 Time tracking: Regular hours 12:31:18 Plan of Care:Hemodynamics will remain stable., Cardiac rhythm will remain stable., Comfort level will be maintained., Respiratory function will remain adequate., Patient/ family verbilizes understanding of procedure., Procedure tolerated without complication., Recovers from procedure without complications.. 12:50:25 Patient received from Pre/Post Procedure Room to CCL 1 Alert and oriented. Tansferred to table in Supine position. 12:50:26 Warm blankets applied, and nicholas hugger turned on for patient comfort. 12:50:27 Correct patient and procedure confirmed by team. 12:50:29 Signed procedure consent form obtained from patient. 12:50:30 ECG and BP/O2 sat monitors applied to patient. 12:51:30 0.9% NaCl 100 ml/hr I.V. was administered by Michael Katz RN; Per physician; 12:51:46 Oxygen 2 l/min NC was administered by Michael Katz RN; Per physician; 12:52:03 Heparin Flush Bag (1000units/500ml NS) 2 bags added to field was administered by Michael Katz RN; used for procedure; 12:52:30 Lidocaine 2% 20ml vial added to field was administered by Michael Katz RN; for local anesthetic; 12:54:32 Vital chart was started 12:57:35 Baseline sample Acquired. 12:57:40 Rhythm: sinus bradycardia 12:57:42 Full Disclosure recording started 12:58:29 H&P Date Dictated: 12/29/2016 Within 30 days and on chart., H&P Addendum completed by physician on day of procedure. (MUST COMPLETE FOR ALL OUTPATIENTS). 12:58:30 Pre-procedure instructions explained to patient. 12:58:31 Pre-op teaching completed and patient verbalized understanding. 12:58:39 Family in waiting room. 12:58:41 Patient NPO since Midnight. 12:58:44 Is the patient allergic to Iodine/contrast media? No. 12:58:45 Is patient on blood thinner?Yes 12:58:47 ACC The patient was administered the following blood thiners within the last 24 hours: ACCPlavix 12:58:49 Patient diabetic? No. 12:58:54 Patient not . Patient is over age 55. 12:58:56 Previous problem with sedation/anesthesia? No ? 12:58:57 Snore? Yes 12:58:58 Sleep apnea? Yes 12:58:59 Deviated septum? No 12:58:59 Opens mouth fully? Yes 12:59:00 Sticks out tongue? Yes 12:59:02 Airway obstruction? No ? 12:59:04 Dentures? No ? 12:59:06 Pre procedure: right dorsailis pedis pulse 1+ Palpable, but thready & weak; easily obliterated 12:59:13 Patient pain scale 0/10 ?. 12:59:26 IV patent on arrival in left forearm with 0.9% NaCl at O. 12:59:29 Lab results completed and on chart. 12:59:34 Right groin area was prepped with chlora-prep and draped in sterile fashion 12:59:35 Alarms reviewed by R. N. 12:59:36 Sharps counted by scrub and verified by R.N. 13:00:17 Procedure type changed to Cath procedure, Diagnostic procedure, LHC, LHC w/Coronaries w/Grafts, FFR/IVUS, Intra-Coronary IVUS Initial, PCI procedure, Coronary Stent Initial x2, PTCA Initial, PTCA Additional, Miscellaneous Procedures, Moderate Sedation up to 15 minutes, Peripheral Cath Diagnostic Procedure, Cath Peripheral, Four Vessel Arteriogram 13:02:36 Physician paged 13:10:30 Physician arrived 13:10:31 --------ALL STOP TIME OUT------ 13:10:31 Final Timeout: patient, procedure, and site verified with staff and physician. All members of the team are in agreement. 13:10:34 Right groin site verified by team. 13:10:37 Physical assessment completed. ASA score P 2 - A patient with mild systemic disease as per Diego Harkins MD. 13:10:42 Sedation plan: IV Moderate Sedation Versed, Fentanyl 13:10:46 Use device set Radial Dx 13:10:48 Use device set Femoral Dx 13:12:02 Tegaderm 4 x 4 opened to sterile field. 13:12:04 Acist Hand Control opened to sterile field. 13:12:05 Acist Manifold opened to sterile field. 13:12:05 Diagnostic Infinity 5Fr Multipack catheter opened to sterile field. 13:12:16 Versed 1 mg I.V. was administered by Michael Katz RN; for sedation; 13:12:30 Fentanyl 50 mcg I.V. was administered by Michael Katz RN; for sedation; 13:13:08 Acist Syringe opened to sterile field. 13:13:09 Bag Decanter opened to sterile field. 13:13:10 Medline Cath Pack opened to sterile field. 13:13:11 Terumo 5Fr [place] Sheath opened to sterile field. 13:13:13 St Anmol 260cm J .035 wire opened to sterile field. 13:14:18 Procedure started. 13:14:35 Local anesthetic to right femoral artery with Lidocaine 2% by Diego Harkins MD.INITIAL ACCESS ONLY 13:14:46 A 5 Fr sheath was inserted into the Right Femoral artery 13:15:06 J wire advanced. 13:15:23 A Cordis 5Fr Pigtail Catheter (MP) was advanced over the wire and used for Procedure. 13:15:26 Versed 0.5 mg I.V. was administered by Michael Katz RN; for sedation; 13:16:13 LV angiography performed. 13:17:18 Fentanyl 25 mcg I.V. was administered by Michael Katz RN; for sedation; 13:21:41 EF : 55 % 13:21:47 Catheter removed. 13:21:59 A Cordis 5Fr JL 4.0 Catheter (MP) was advanced over the wire and used for Procedure. 13:23:14 Catheter removed. 13:23:45 A Diagnostic Infinity 5Fr JL 3.5 catheter was advanced over the wire and used for Procedure. 13:24:53 Aortic Root visualized 13:25:07 A Cordis 5Fr 3DRC Catheter (MP) was advanced over the wire and used for Procedure. 13:27:05 Right carotid angiography performed. 13:27:07 Left carotid angiography performed. 13:27:26 RCA angiography performed. 13:29:13 Merit BasixCompak Inflation Kit opened to sterile field. 13:29:13 Terumo 6Fr [place] Sheath opened to sterile field. 13:29:14 Victoria Sci Choice PT Extra Support 182cm wire opened to sterile field. 13:29:15 Victoria Sci Choice PT Extra Support 182cm wire opened to sterile field. 13:29:39 Heparin Bolus 5000 units I.V. was administered by Michael Katz RN; for anticoagulation; 13:30:06 Sheath upsized to a 6 Fr Short. 13:30:55 Medtronic Launcher 6Fr EBU 3.0 SH guide catheter opened to sterile field. 13:30:56 Medtronic Launcher 6Fr EBU 3.5 SH guide catheter opened to sterile field. 13:31:02 6 Fr ebu 3.0 guide catheter was inserted over the wire 13:31:26 Catheter removed. unable to cannulate vessel. 13:31:36 6 Fr 3.5 guide catheter was inserted over the wire 13:31:58 choice pt wire advanced. 13:32:03 Wire advanced across lesion. 13:33:28 first wire down the cx. second wire down om 13:34:32 Inflation number: 1 A Mozec Rx 3.0 x 14 balloon was prepped and advanced across the 1st Ob Jaqueline, then inflated to 19 PATTIE for 0:00 (min:sec). 13:36:17 Inflation number: 2 The Mozec Rx 3.0 x 14 balloon was reinflated across the 1st Ob Jaqueline, to 21 PATTIE for 0:00 (min:sec). 13:37:14 Inflation number: 3 The Mozec Rx 3.0 x 14 balloon was reinflated across the 1st Ob Jaqueline, to 23 PATTIE for 0:08 (min:sec). 13:37:34 Balloon removed over the wire. 13:37:42 Balloon re-inserted over wire. 13:38:16 Balloon removed from OM and inserted to CX 13:39:21 Inflation number: 1 The Mozec Rx 3.0 x 14 balloon was reinflated across the Prox CX, to 11 PATTIE for 0:09 (min:sec). 13:45:19 [place] IVUS Catheter opened to sterile field. 13:45:22 IVUS catheter advanced over wire. 13:45:23 IVUS catheter removed over wire. 13:45:47 Balloon removed over the wire. 13:46:56 Versed 0.5 mg I.V. was administered by Michael Katz RN; for sedation; 13:47:09 Fentanyl 25 mcg I.V. was administered by Michael Katz RN; for sedation; 13:47:18 Inflation Number: 1 A Vu OTW 3.0 x 12 stent was prepped and advanced across the LMCA. The stent was deployed at 19 PATTIE for 0:10 (min:sec). 13:47:35 Stent catheter was removed intact over wire. 13:48:25 Wire removed. 13:48:26 Guide catheter removed. 13:48:43 Medtronic Launcher 6Fr AR 2.0 guide catheter opened to sterile field. 13:48:52 6 Fr ar2 guide catheter was inserted over the wire 13:49:03 choice wire advanced. 13:50:31 Inflation Number: 1 A Greenleaf OTW 3.0 x 12 stent was prepped and advanced across the Dist RCA. The stent was deployed at 17 PATTIE for 0:00 (min:sec). 13:51:56 Versed 0.5 mg I.V. was administered by Michael Katz RN; for sedation; 13:52:06 Fentanyl 25 mcg I.V. was administered by Michael Katz RN; for sedation; 13:52:06 Stent catheter was removed intact over wire. 13:52:07 Wire removed. 13:52:07 Guide catheter removed. 13:52:24 Cordis 6Fr Exoseal opened to sterile field. 13:52:38 Sheath removed intact; hemostasis achieved with Exoseal to the Right Femoral artery. 13:52:42 Procedure ended.(Physican Out) 13:52:56 Fluoroscopy time 11.50 minutes. 13:53:02 Flurop Dose total: 1417 13:53:02 Fluoroscopy dose: 1417 mGy 13:53:06 Contrast amount:Isovue 300 156ml. 13:53:08 Sharps counted by scrub and verified by R.N. 13:53:12 Insertion/operative site no bleeding no hematoma. 13:53:17 Post-op/insertion site Right Femoral artery dressed using a 4 x 4 and Tegaderm. 13:53:22 Post Procedure Pulses reassessed and unchanged 13:53:28 Post-procedure physical assessment completed. ASA score P 2 - A patient with mild systemic disease as per Diego Harkins MD. 13:53:32 Estimated blood loss: 10 ml 13:53:34 Post procedure instruction explained to patient.Patient verbalizes understanding. 13:54:44 Procedure and supply charges have been captured, reviewed, submitted and are correct. 13:59:23 Procedure Complication : No complications 13:59:43 Vital chart was stopped 13:59:46 See physician's report for complete and final results. 13:59:49 Report given to Pre/Post Procedure Room. 13:59:52 Patient transfered to Pre/Post Procedure Room with Stretcher. 13:59:55 Procedure ended. 13:59:55 Full Disclosure recording stopped 13:59:59 End room use (Document Last) Intervention Summary Intervention Notes Time ActionType Lesion and Equipment Action# Pressure Duration Attributes Used 13:34:32 Inflate 1st Ob Jaqueline Mozec Rx 1 19 00:00 balloon 3.0 x 14 balloon 13:36:17 Reinflate 1st Ob Jaqueline Mozec Rx 2 21 00:00 balloon 3.0 x 14 balloon 13:37:14 Reinflate 1st Ob Jaqueline Mozec Rx 3 23 00:08 balloon 3.0 x 14 balloon 13:39:21 Reinflate Prox CX Mozec Rx 1 11 00:09 balloon 3.0 x 14 balloon 13:47:18 Place stent LMCA Greenleaf OTW 1 19 00:10 3.0 x 12 stent 13:50:31 Place stent Dist RCA Greenleaf OTW 1 17 00:00 3.0 x 12 stent Device Usage Item Name Manufacture Quantity Catalog Number [facility] Lot# / Charge Number Stock Stock Serial# Code Tegaderm 4 1 [id number] [id number] [id number] 5 x 4 Acist Hand Acist 1 98267 085704 149707 027767 5 Adynxx Medical Systems Inc Acist Acist 1 89368 907795 591712 188187 5 ibox Holding Limited Medical Systems Inc Diagnostic Cardinal 1 [id number] 151153 05572 959380 30 Teach Me To Be 5Fr Multipack catheter Acist Acist 1 29707 453162 253328 866917 20 Syringe Medical Systems BragThis.com Bag Microtek 1 2002S 421068 11767 270659 5 Dec[employer] Inc. Medline Cardinal 1 [id number] 274235 84035 783031 5 Cath Pack Health Terumo 5Fr Terumo 1 [id number] 426280 168923 428759 [address] [place] [address] Anmol St Anmol 1 860000 922697 641765 593048 30 260cm J .035 wire Cordis 5Fr Cardinal 1 649353 5 Pigtail Health Catheter (MP) Cordis 5Fr Cardinal 1 496366 5 JL 4.0 Health Catheter (MP) Diagnostic Cardinal 1 [id number] 226763 448669 198826 5 Infinity Health 5Fr JL 3.5 catheter Cordis 5Fr Cardinal 1 834143 5 3DRC Health Catheter (MP) Merit Merit 1 [id number] 843901 047347 074678 15 SAFCell Medical Inflation Kit Terumo 6Fr Terumo 1 [id number] 083621 092354 458904 40 [place] Sheath Victoria Sci [place] 2 [id number] 719777 411854 998044 5 Choice PT Scientific Extra Support 182cm wire Medtronic Medtronic 1 [id number] 878536 26031 339726 0 Launcher 6Fr EBU 3.0 SH guide catheter Medtronic Medtronic 1 [id number] 515333 72464 937207 1 Launcher 6Fr EBU 3.5 SH guide catheter Mozec Rx Cardinal 1 [id number] 109950 [id number] 282884 5 UMOA71 3.0 x 14 Health balloon Blacklick Blacklick 1 [id number] 801114 829686 633913 8 [place] Eag[place] IVUS Catheter Greenleaf OTW Medtronic 2 [id number] 417378 549751 218205 5 [id number] 3.0 x 12 [id number] stent Medtronic Medtronic 1 [id number] 656416 76829 957868 1 Launcher 6Fr AR 2.0 guide catheter Cordis 6Fr Cardinal 1 [id number] 564191 234217 979917 10 [facility] Signature Audit [place] Stage Time Signature Unsigned Intra-Procedure 12/30/2016 Tammy Carmichael 2:04:46 PM RT(R) Signatures Monitor : Tammy Carmichael Signature : RT Date : Time : [facility] [address] [facility] [place] [address]
--- NOTE | ~2016-12-30 | OP ---
PATIENT NAME: BRIAN THOMAS MEDICAL RECORD: [id number] :52 LOCATION:D.CAT ADMISSION DATE: SURGEON: DEJUAN BALDERAS MD DATE OF OPERATION: 12/30/2016 PROCEDURES: 1. PTCA stent left main. 2. PTCA stent RCA. 3. PTCA circumflex, first obtuse marginal. 4. PTCA left circumflex. 5. Left heart catheterization. 6. Selective coronary angiography. 7. Vein graft angiography. 8. HERNANDES angiography. 9. Intravascular ultrasound. 10. Left ventriculogram. INDICATIONS: Angina and coronary artery disease. PROCEDURE IN DETAIL: After informed consent was obtained and after detailed explanation of risks, benefits as well as alternative therapies, the patient elected to proceed with angiogram and angioplasty. The right femoral area is prepped and draped in normal sterile fashion. The right femoral artery was cannulated via modified Seldinger technique with placement of 6-[place] sheath. All catheters exchanged through this sheath. FINDINGS: The left ventriculogram was performed in standard 30-degree CARREON view reveals preserved cardiac wall motion, ejection fraction 55%. SELECTIVE CORONARY ANGIOGRAPHY: 1. Left main has 70% plus stenosis in the mid vessel. 2. Left anterior descending is totally occluded. 3. HERNANDES to the LAD is widely patent. 4. Left circumflex has stents in the first obtuse marginal, as well as the left circumflex itself. The first obtuse marginal is 95% restenosed. 5. The right coronary has previously placed stents. There is 70% to 80% in-stent restenosis distally. PTCA STENT OF THE RIGHT CORONARY: The stent used was 3.0 x 12 mm Vu. Result was 0% residual stenosis. PTCA STENT OF THE LEFT MAIN: The stent used was a 3.0 x 12 mm Vu. Result was 0% residual stenosis. PTCA OF THE LEFT CIRCUMFLEX: We did a high-pressure PTCA for the in-stent restenosis of the first obtuse marginal with 3.0 balloon taken to 23 atmospheres. This caused plaque shift into the circumflex. We addressed this with the same balloon at 13 atmospheres. Result was 0% residual stenosis. Intravascular ultrasound was performed to make sure that stenting was taken to the ostium of the first obtuse marginal and it was. OVERALL IMPRESSION: Successful percutaneous transluminal coronary angioplasty stent of the left main and right coronary artery and successful percutaneous transluminal coronary angioplasty stent of the left circumflex. OPERATIVE REPORT [id number] BRIAN THOMAS TRANSINT:[id number] Voice Confirmation ID: [id number] DOCUMENT ID: [id number] DEJUAN BALDERAS MD CC: [id number] DICTATION DATE: 12/30/16 1355 CELL PLASTERER: 12/30/16 1744 REG [facility] [address] [place] [id number]
[2016-12-30 09:31] VITALS: BP 136/72; Ht 152.4 cm; Wt 54.1 kg
[2016-12-30 10:22] LABS: BASOPHILS 0.2 % (0-2); EOSINOPHILS 2.1 % (0-7); HEMATOCRIT 34.6 % (36.0-48.0); HEMOGLOBIN 11.2 g/dL (12-16); IMMATURE GRANULOCYTES 0.6 % (0-5); LYMPHOCYTES 13.7 % (15-50); MCH 29.6 pg (26.0-34.0); MCHC 32.4 g/dL (31.0-37.0); MCV 91.3 fL (80.0-100.0); MONOCYTES 9.9 % (2-11); NEUTROPHILS 73.5 % (40-80); PLATELET COUNT 478 10x3/uL (130-400); RBC 3.79 10x6/uL (4.00-5.40); RDW 14.7 % (11.5-14.5); WBC 4.8 10x3/uL (4.8-10.8)
[2016-12-30 10:38] LABS: ANION GAP 10.4 mmol/L (8-16); CALCIUM 9.1 mg/dL (8.5-10.1); CARBON DIOXIDE 29.2 mmol/L (21.0-32.0); CREATININE - SERUM 0.9 mg/dL (0.6-1.3); POTASSIUM - SERUM 4.6 mmol/L (3.5-5.1)
[2016-12-30] MEDS ORDERED: BAYER CHEWABLE81 MG PO (14:08)
--- NOTE | 2016-12-30 14:10 | NUR ---
1410 RECIEVED TO ROOM VIA STRETCHER FROM HAND [employer] WITH 6 FR EXOSEAL R/GROIN CDI. REPORTS OF ONE STENT TO THE CIRC. ONE STENT TO THE OM. VSS WITH CHEST PAIN DENIED
--- NOTE | 2016-12-30 14:26 | NUR ---
6 FR EXOSEAL R/GROIN CDI NO BLEEDING NO HEMATOMA NOTED. VSS WITH CHEST PAIN DENIED. INSTRUCTED PATIENT TO KEEP HEAD FLAT ON PILLOW WITH RLE STRAIGHT. AT BEDSIDE
--- NOTE | 2016-12-30 14:41 | NUR ---
PATIENT DENIED CHEST PAIN R/GROIN REMAINS CDI NO BLEEDING NO HEMATOMA NOTED. DR BALDERAS AT SIDE TALKING TO PATIENT AND . VSS WILL MONITOR
--- NOTE | 2016-12-30 15:01 | NUR ---
R/GROIN STABLE NO BLEEDING NO HEMATOMA NOTED. PATIENT DENIED CHEST PAIN VSS WILL MONITOR
--- NOTE | 2016-12-30 15:53 | NUR ---
PATIENT RESTING QUIETLY NO DISTRESS VSS WITH CHEST PAIN DENIED. 6 FR EXOSEAL R/GROIN CDI NO BLEEDING NO HEMATOMA NOTED.
--- NOTE | 2016-12-30 16:21 | NUR ---
NO CHANGE IN ASSESSMENT PATIENT DENIED PAIN OR NEEDS FAMILY AT SIDE
--- NOTE | 2016-12-30 16:53 | NUR ---
R/GROIN REMAINS CDI NO BLEEDING NO HEMATOMA NOTED. PULSES PALPABLE. VSS WITH CHEST PAIN DENIED. FAMILY AT SIDE
--- NOTE | 2016-12-30 17:00 | NUR ---
1700 REPORT AND CARE FROM HEENA BUCHANAN RN. PT IS ALERT, HAS DEVONTE PO FLUIDS AND PIZZA GIVEN BY . DENIES NAUSEA OR CHEST DISCOMFORT. VSS. RIGHT GROIN IS STABLE WITH NO BLEEDING OR HEMATOMA NOTED. PEDAL PULSES PALPABLE. WILL CONTINUE TO MONITOR.
--- NOTE | 2016-12-30 17:30 | NUR ---
1730 HOB ELEVATED 45 DEGREES, PT DENIES ANY C/O.
--- NOTE | 2016-12-30 17:50 | NUR ---
1750 RIGHT GROIN REMAINS STABLE, HOB HAS BEEN ELEVATED TO 90 DEGREES, IV DC'D WITH CATH INTACT. PT DRESSING FOR DC.
--- NOTE | 2016-12-30 18:14 | NUR ---
1805 DC INSTRUCTIONS REVIEWED WITH PT AND WHO VERBALIZE UNDERSTANDING. PT ESCORTED TO BATHROOM VIA WC AND VOIDED QS. RIGHT GROIN REMAINS STABLE. PT ESCORTED TO PRIVATE AUTO VIA WC BY NURSE WITH DRIVNG HER HOME.
== END 2016-12-30 18:05 | disposition home or self-care (01) ==
LOC: D.CATH 09:02
PROVIDERS: Internal Medicine Interventional Cardiology
DX: I25.119 Atherosclerotic heart disease of native coronary artery with unspecified angina pectoris (principal); R42 Dizziness and giddiness; E78.5 Hyperlipidemia, unspecified; I10 Essential (primary) hypertension; G47.30 Sleep apnea, unspecified; Z01.812 Encounter for preprocedural laboratory examination; R26.9 Unspecified abnormalities of gait and mobility
CPT/HCPCS: 92920; 93459; 92921; 92978; 36215; 36216; 36218; C9600 ×2

== ENCOUNTER 2017-04-18 11:49 | Outpatient (CLI) | payer MEDICARE, OTHER ==
[2017-04-18 14:18] VITALS: Ht 152.4 cm
== END 2017-04-18 13:00 | disposition home or self-care (01) ==
LOC: D.OPS 11:49
DX: M81.0 Age-related osteoporosis without current pathological fracture (principal)

== ENCOUNTER 2017-08-11 07:26 | Outpatient (CLI) | payer MEDICARE, OTHER ==
[~2017-08-11] VITALS: Ht 152.4 cm; Wt 58.6 kg
--- NOTE | ~2017-08-11 | HEMODYNAMI ---
PATIENT:BRIAN THOMAS MEDICAL RECORD: [id number] : 52 LOCATION:[facility] ADMISSION DATE: 08/11/17 Generatedon:08/11/201710:58 Patient name: BRIAN THOMAS Patient #: [id number] : 1950 Date of study: 08/11/2017 Page: Of Hemodynamic Procedure Report Patient Data Patient Demographics Procedure consent was obtained First Name: BRIAN Gender: Female Last Name: MARTHA : 1950 Middle Initial: KAREN Age: 67 year(s) Patient #: [id number] Race: SSN: [id number] Additional ID: [id number] Contact details [address]: [address] [place] [address] State: [place] City: [place] Zip code: [address] Past Medical History History of disease Date Diagnosis Comments CAD Allergies Allergen Reaction Date Comments Reported Other allergy 01/12/2015 Crestor Other allergy 09/14/2016 crestor Other allergy 08/11/2017 crestor Admission Admission Data Admission Date: 08/11/2017 Admission Time: 7:26 Admit Source: Other Insurance Payor: Medicare Procedure Procedure Types Cath Procedure Diagnostic Procedure C LHC w/Coronaries w/Grafts FFR/IVUS Intra-Coronary IVUS Initial PCI Procedure Coronary Stent Coronary Stent Initial x2 PTCA PTCA Additional Procedure Description Procedure Date Procedure Date: 08/11/2017 Procedure Start Time: 10:19 Procedure End Time: 10:58 Procedure Staff Name Function Diego Harkins MD Performing Physician Gurpreet Healy RT Monitor Live Reed RT Scrub Galen Katz RN Nurse Procedure Data Cath Procedure Fluoroscopy Diagnostic fluoroscopy Total fluoroscopy Time: 10 time: 10 min min Diagnostic fluoroscopy Total fluoroscopy dose: dose: 365.81 mGy 365.81 mGy Contrast Material Contrast Material Type Amount (ml) Isovue 300 147 Entry Location Entry Primary Successful Side Size Upsize Upsize Entry Closure Succes sful Closure Location (Fr) 1 (Fr) 2 (Fr) Remarks Device Remarks Femoral Left 6 Fr Exoseal artery Short Estimated blood loss: 20 ml Diagnostic catheters Device Type Used For End Catheter Placement MULTIPACK Pigtail 5 Fr Procedure catheter MULTIPACK JL 4.0 5Fr Procedure catheter DIAGNOSTIC JL 3.5 5Fr Procedure catheter ([id number]) MULTIPACK 3DRC 5Fr Procedure catheter Procedure Medications Medication Administration Route Dosage 0.9% NaCl I.V. 100 ml/hr Oxygen etCO2 Nasal cannula 2 l/min Heparin Flush Bag added to field 2 bags (1000units/500ml NS) Lidocaine 2% added to field 20 Versed I.V. 1 mg Fentanyl I.V. 50 mcg Heparin Bolus I.V. 4000 units Versed I.V. 1 mg Fentanyl I.V. 50 mcg Hemodynamics Rest Heart Rate: 48 (bpm) Pressure Samples Time Site Value (mmHg) Purpose Heart Use Rate(bpm) 10:22 LV 49/-32,11 Snapshot 52 Snapshots Pre Cath Intra NCS Post Cath Vital Signs Time Heart Resp SPO2 etCO2 NIBP (mmHg) Rhythm Pain Sedation Rate (ipm) (%) (mmHg) Status Level (bpm) 9:32:44 54 15 96 0 132/67(99) NSR 0 (11) 10(A) , No pain 9:37:06 57 23 98 39 121/63(105) NSR 0 (11) 10(A) , No pain 9:41:22 54 19 99 42.7 122/68(90) NSR 0 (11) 10(A) , No pain 9:45:30 58 13 99 45 111/71(93) NSR 0 (11) 10(A) , No pain 9:49:44 52 12 98 42 119/60(100) NSR 0 (11) 10(A) , No pain 9:54:00 52 14 98 36.8 116/62(99) NSR 0 (11) 10(A) , No pain 9:58:14 53 15 98 13.5 129/63(105) NSR 0 (11) 10(A) , No pain 10:02:34 52 14 98 24 117/59(74) NSR 0 (11) 10(A) , No pain 10:06:48 54 14 99 42 115/55(98) NSR 0 (11) 10(A) , No pain 10:11:02 53 12 99 15.7 118/62(81) NSR 0 (11) 10(A) , No pain 10:15:14 51 13 99 39 119/61(102) NSR 0 (11) 10(A) , No pain 10:19:28 52 12 98 39.8 121/61(99) NSR 0 (11) 10(A) , No pain 10:23:44 51 14 98 41.3 123/60(82) NSR 0 (11) 9(A) , No pain 10:27:56 58 15 97 18 114/62(103) NSR 0 (11) 9(A) , No pain 10:32:08 55 19 98 42 129/66(111) NSR 0 (11) 9(A) , No pain 10:37:25 57 14 98 40.5 124/69(100) NSR 0 (11) 9(A) , No pain 10:41:41 59 12 97 39 128/67(108) NSR 0 (11) 9(A) , No pain 10:45:56 58 15 98 30.8 142/70(120) NSR 0 (11) 10(A) , No pain 10:50:14 55 11 98 0 145/76(117) NSR 0 (11) 10(A) , No pain 10:54:38 55 18 99 37.5 143/67(121) NSR 0 (11) 10(A) , No pain Medications Time Medication Route Dose Verified Delivered Reason Notes Effectiveness by by 9:29:37 0.9% NaCl I.V. 100 Galen Galen Per physician ml/hr Gianna Katz RN RN 9:29:48 Oxygen etCO2 2 Galen Galen Per physician Nasal l/min Gianna Katz cannula RN RN 9:30:03 Heparin Flush added 2 Galen Galen used for Bag to bags Gianna Katz procedure (1000units/500ml field ROLDAN RN NS) 9:30:19 Lidocaine 2% added 20ml Galen Galen for local to vial Gianna Katz anesthetic field ROLDAN RN 10:18:44 Versed I.V. 1 mg Galen Galen for sedation Gianna Katz RN RN 10:18:53 Fentanyl I.V. 50 Galen Galen for sedation mcg Gianna Katz RN RN 10:29:20 Heparin Bolus I.V. 4000 Galen Galen for units Gianna Katz anticoagulation RN RN 10:30:04 Versed I.V. 1 mg Galen Galen for sedation Gianna Katz RN RN 10:30:10 Fentanyl I.V. 50 Galen Galen for sedation mcg Gianna Katz RN fire official Log Time Note 9:08:43 Informed consent obtained and on chart 9:09:13 Admit Source: Other 9:09:35 Diagnostic Cath status Elective 9::36 Time tracking: Regular hours (M-F 7:00 - 5:00) 9:09:39 Plan of Care:Hemodynamics will remain stable., Cardiac rhythm will remain stable., Comfort level will be maintained., Respiratory function will remain adequate., Patient/ family verbilizes understanding of procedure., Procedure tolerated without complication., Recovers from procedure without complications.. 9:09:50 H&P Date Dictated: 08/07/2017 Within 30 days and on chart., H&P Addendum completed by physician on day of procedure. (MUST COMPLETE FOR ALL OUTPATIENTS). 9:11:52 Live Reed RT(R) sent for patient. Start room use. 9:17:36 Insurance Payor : Medicare 9:24:54 Patient received from Pre/Post Procedure Room to CCL 3 Alert and oriented. Tansferred to table in Supine position. 9:24:54 Warm blankets applied, and nicholas hugger turned on for patient comfort. 9:24:54 Correct patient and procedure confirmed by team. 9:24:55 ECG and BP/O2 sat monitors applied to patient. 9:24:55 Vital chart was started 9:24:56 Baseline sample Acquired. 9:25:03 Rhythm: sinus rhythm 9:25:04 Full Disclosure recording started 9:25:04 Pre-procedure instructions explained to patient. 9:25:05 Pre-op teaching completed and patient verbalized understanding. 9:25:06 Family in waiting room. 9:25:07 Patient NPO since Midnight. 9:25:21 Patient allergic to Other allergycrestor 9:25:23 Is the patient allergic to Iodine/contrast media? No. 9:25:23 Is patient on blood thinner?Yes 9:25:25 ACC The patient was administered the following blood thiners within the last 24 hours: ACCPlavix 9:25:26 Patient diabetic? No. 9:25:29 Previous problem with sedation/anesthesia? No ? 9:25:29 Snore? Yes 9:25:30 Sleep apnea? Yes 9:25:31 Deviated septum? No 9:25:31 Opens mouth fully? Yes 9:25:32 Sticks out tongue? Yes 9:25:34 Airway obstruction? No ? 9:25:35 Dentures? No ? 9:25:38 Pre procedure: right dorsailis pedis pulse 2+ Normal; easily identifiable; not easily obliterated 9:25:40 Patient pain scale 0/10 ?. 9:25:45 IV patent on arrival in left forearm with 0.9% NaCl at [facility]. 9:25:47 Lab results completed and on chart. 9:25:49 Right groin area was prepped with chlora-prep and draped in sterile fashion 9:25:50 Alarms reviewed by R. N. 9:25:50 Sharps counted by scrub and verified by R.N. 9:25:52 Use device set Femoral Dx 9:25:52 ACIST Syringe (94328) opened to sterile field. 9:25:53 Bag Decanter (2002S) opened to sterile field. 9:25:53 Medline Cath Pack ([id number]) opened to sterile field. 9:25:54 ACIST Hand Control (72838) opened to sterile field. 9:25:55 ACIST Manifold (07869) opened to sterile field. 9:25:55 DIAGNOSTIC Multipack 5Fr catheter set ([id number]) opened to sterile field. 9:25:56 Tegaderm 4 x 4 (1626W) opened to sterile field. 9:25:57 PERCUTANEOUS ENTRY 19GA needle opened to sterile field. 9:25:58 DIAGNOSTIC WIRE .035 260cm J wire (008714) opened to sterile field. 9:29:37 0.9% NaCl 100 ml/hr I.V. was administered by Galen Katz RN; Per physician; 9:29:48 Oxygen 2 l/min etCO2 Nasal cannula was administered by Galen Katz RN; Per physician; 9:30:03 Heparin Flush Bag (1000units/500ml NS) 2 bags added to field was administered by Galen Katz RN; used for procedure; 9:30:19 Lidocaine 2% 20ml vial added to field was administered by Galen Katz RN; for local anesthetic; 9:43:31 Zero performed for pressure channel P1 9:43:34 Zero performed for pressure channel P1 10::24 Dr. Harkins on the floor consulting 10::46 Patients family notified of delay 10:18:07 Physician arrived 10:18:08 --------ALL STOP TIME OUT------ 10:18:08 Final Timeout: patient, procedure, and site verified with staff and physician. All members of the team are in agreement. 10:18:12 Left groin site verified by team. 10:18:16 Physical assessment completed. ASA score P 2 - A patient with mild systemic disease as per Diego Harkins MD. 10:18:23 Sedation plan: IV Moderate Sedation Medication:Versed, Fentanyl 10:18:44 Versed 1 mg I.V. was administered by Galen Katz RN; for sedation; 10::53 Fentanyl 50 mcg I.V. was administered by Galen Katz RN; for sedation; 10:19:27 Procedure started. 10:19:36 Local anesthetic to left femerol artery with Lidocaine 2% by Diego Harkins MD.INITIAL ACCESS ONLY 10:20:29 SHEATH 6Fr Prelude ([id number]) opened to sterile field. 10:21:24 A 6 Fr Short sheath was inserted into the Left Femoral artery 10:21:31 A MULTIPACK Pigtail 5 Fr catheter was advanced over the wire and used for Procedure. 10:22:22 LV gram done using CARREON 10::24 LV hemodynamics recorded. 10:22:29 EF : 55 % 10:22:32 Catheter removed. 10:22:37 A MULTIPACK JL 4.0 5Fr catheter was advanced over the wire and used for Procedure. 10:23:32 Catheter removed. unable to cannulate vessel. 10:23:49 A DIAGNOSTIC JL 3.5 5Fr catheter ([id number]) was advanced over the wire and used for Procedure. 10:24:25 LCA angiography performed. 10:24:38 Catheter removed. 10:24:59 INFLATOR Merit BasixCompak (BW2068) opened to sterile field. 10:25:05 GUIDE 6FR EBU 3.0 catheter ([id number]) opened to sterile field. 10:25:14 A MULTIPACK 3DRC 5Fr catheter was advanced over the wire and used for Procedure. 10:25:39 HERNANDES to LAD angiography performed. 10:25:56 RCA angiography performed. 10:26:55 Catheter removed. 10:27:13 [place] IVUS Catheter (17517S) opened to sterile field. 10:28:04 CHOICE PT Extra Support 182cm wire ([id number]) opened to sterile field. 10:28:15 GUIDE 6FR HS II SH catheter ([id number]) opened to sterile field. 10:28:48 Proceeding to intervention. 10:29:05 6 Fr HS SH guide catheter was inserted over the wire 10:29:13 CHOICE wire advanced. 10:29:20 Heparin Bolus 4000 units I.V. was administered by Galen Katz RN; for anticoagulation; 10:29:22 Wire advanced across lesion. 10:30:04 Versed 1 mg I.V. was administered by Galen Katz RN; for sedation; 10:30:10 Fentanyl 50 mcg I.V. was administered by Galen Katz RN; for sedation; 10:32:13 FFR/IVUS 10:32:14 IVUS catheter advanced over wire. 10:32:18 IVUS pass to RCA lesion performed. 10:32:20 IVUS catheter removed over wire. 10:32:28 80% 10:33:12 Place stent Inflation Number: 1 A ERROL RX 2.5 x 08 stent ([id number]) was prepped and advanced across the Dist RCA. The stent was deployed at 17 PATTIE for 0:10 (min:sec). 10:34:15 Stent catheter was removed intact over wire. 10:34:22 Wire removed. 10:34:23 Guide catheter removed. 10:34:34 6 Fr EBU 3 guide catheter was inserted over the wire 10:37:10 Wire advanced across lesion. 10:37:14 Stent balloon re-inserted over wire. 10:37:59 BALLOON INFLATED IN THE CIRCUMFLEX 21 ATMS 10:38:09 Wire redirected to OM. 10:39:08 Balloon removed over the wire. 10:39:16 Wire removed. 10:40:06 CHOICE wire advanced. 10:40:20 Wire advanced across lesion. 10:40:27 OM 10:42:13 Place stent Inflation Number: 1 A ERROL RX 2.75 x 08 stent ([id number]) was prepped and advanced across the 1st Ob Jaqueline. The stent was deployed at 21 PATTIE for 0:10 (min:sec). 10:42:42 Wire redirected to CIRCUMFLEX. 10:43:03 Stent catheter was removed intact over wire. 10:44:56 Inflate balloon Inflation number: 1 A EUPHORA 2.5 x 12 Balloon ([id number]) was prepped and advanced across the Mid CX, then inflated to 17 PATTIE for 0:10 (min:sec). 10:45:13 Balloon removed over the wire. 10:45:14 Wire removed. 10:45:15 Guide catheter removed. 10:45:31 EXOSEAL 6Fr (EX600) opened to sterile field. 10:46:14 FEMSTOP Gold (P05035) opened to sterile field. 10:46:38 Sheath removed intact; hemostasis achieved with Exoseal to the Left Femoral artery. 10:46:41 Procedure ended.(Physican Out) 10:46:47 Fluoroscopy time 10.00 minutes. 10:46:58 Flurop Dose total: 365.81 10:46:58 Fluoroscopy dose: 365.81 mGy 10:47:04 Contrast amount:Isovue 300 147ml. 10:47:06 Sharps counted by scrub and verified by R.N. 10:48:15 Procedure type changed to Cath procedure, Diagnostic procedure, LHC, LHC w/Coronaries w/Grafts, FFR/IVUS, Intra-Coronary IVUS Initial, PCI procedure, Coronary Stent, Coronary Stent Initial x2, PTCA, PTCA Additional 10:49:13 FEMOSTOP PLACED PATIENT HAS A HISTORY OF UNCONTROLLED BLEEDING 10:54:10 Insertion/operative site no bleeding no hematoma. 10:54:23 Post-op/insertion site Left Femoral artery dressed using a 4 x 4 and Tegaderm. 10:54:34 Post left femerol artery:stable 10:54:45 Femstop placed over the left femerol artery at 105 mmHg. Hemostasis achieved. 10:55:01 Post procedure: left dorsailis pedis pulse 1+ Palpable, but thready & weak; easily obliterated. 10:55:05 Post-procedure physical assessment completed. ASA score P 2 - A patient with mild systemic disease as per Diego Harkins MD. 10:55:10 Post procedure rhythm: sinus bradycardia 10:55:14 Estimated blood loss: 20 ml 10:55:17 Post procedure instruction explained to patient.Patient verbalizes understanding. 10:55:19 Patient needs reinforcement of post procedure teaching. 10:56:11 Procedure and supply charges have been captured, reviewed, submitted and are correct. 10:57:59 Vital chart was stopped 10:57:59 See physician's report for complete and final results. 10:58:02 Report given to Pre/Post Procedure Room. 10:58:05 Patient transfered to Pre/Post Procedure Room with Stretcher. 10:58:08 Procedure ended. 10:58:08 Full Disclosure recording stopped 10:58:13 End room use (Document Last) Intervention Summary Intervention Notes Time ActionType Lesion and Equipment Used Action# Pressure Duration Attributes 10:33:12 Place stent Dist RCA ERROL RX 2.5 x 1 17 00:10 08 stent ([id number]) 10:42:13 Place stent 1st Ob Jaqueline ERROL RX 2.75 x 1 21 00:10 08 stent ([id number]) 10:44:56 Inflate Mid CX EUPHORA 2.5 x 1 17 00:10 balloon 12 Balloon ([id number]) Device Usage Item Name Manufacture Quantity Catalog Number Hospital Part Current M inimal Lot# / Charge Number Stock Stock Serial# Code ACIST Syringe Acist 1 98176 712838 983851 253947 2 0 (28697) Medical Systems Inc Bag Decanter Microtek 1 2001S 548581 56698 248349 5 () Medical Inc. Medline Cath Cardinal 1 [id number] 727196 54250 199744 5 Pack Health ([id number]) ACIST Hand Acist 1 48341 083869 111226 729810 5 Control Medical (89321) Systems Inc ACIST Manifold Acist 1 92652 658272 590945 396254 5 (39337) Medical Systems Inc DIAGNOSTIC Cardinal 1 SX6750 951334 18470 138136 3 0 Multipack 5Fr Health catheter set (JD2685) Tegaderm 4 x 4 3M 1 1626W 231756 014713 434253 5 (1626W) PERCUTANEOUS Cook Medical 1 G21531 086877 989312 5 ENTRY 19GA needle DIAGNOSTIC [address] Anmol 1 111064 723232 307966 317896 3 0 WIRE .035 260cm J wire (843111) SHEATH 6Fr Merit 1 [id number] 015408 235892 653587 5 Prelude Medical ([id number]) MULTIPACK Cardinal 1 746567 5 Pigtail 5 Fr Health catheter MULTIPACK JL Cardinal 1 646103 5 4.0 5Fr Health catheter DIAGNOSTIC JL Cardinal 1 [id number] 267051 366211 608780 5 3.5 5Fr Health catheter (388346S) INFLATOR Merit Merit 1 BP6932 473578 832210 185453 1 5 High Cloud Security (QY1989) GUIDE 6FR EBU Medtronic 1 [id number] 770380 10310 200419 0 3.0 catheter ([id number]) MULTIPACK 3DRC Cardinal 1 035938 5 5Fr catheter Health [place] 1 56011Q 011307 736837 132819 8 [place] IVUS Catheter (51862H) CHOICE PT [place] 1 [id number] 214178 509609 989808 5 Extra Support Scientific 182cm wire ([id number]) GUIDE 6FR HS Medtronic 1 [id number] 915276 66169 880542 1 II SH catheter (TR4FCLRZE) ERROL RX 2.5 x Medtronic 1 [id number] 575382 3779356 079102 5 [id number] 08 stent ([id number]) ERROL RX 2.75 x Medtronic 1 [id number] 492655 3054611 867953 5 [id number] 08 stent ([id number]) EUPHORA 2.5 x Medtronic 1 [id number] 581161 393283 991102 5 12 Balloon ([id number]) EXOSEAL 6Fr Cardinal 1 EX600 698465 138172 356039 1 0 (EX600) Health FEMSTOP Gold St Anmol 1 V51588 007977 440570 956365 5 ([id number]) Signature Audit [place] Stage Time Signature Unsigned Intra-Procedure 08/11/2017 Gurpreet Healy 10:58:42 AM RT(R) (CV) Signatures Monitor : Gurpreet Healy RT Signature : Date : Time : [facility] [address] [place] [address]
--- NOTE | ~2017-08-11 | OP ---
PATIENT NAME: BRIAN THOMAS MEDICAL RECORD: [id number] :52 LOCATION:D.CAT ADMISSION DATE: SURGEON: DEJUAN BALDERAS MD DATE OF OPERATION: 08/11/2017 PROCEDURES: 1. PTCA stent left circumflex, first obtuse marginal. 2. PTCA stent RCA. 3. PTCA left circumflex. 4. Intravascular ultrasound RCA. 5. HERNANDES angiography. 6. Left ventriculogram. 7. Left heart catheterization. 8. Selective coronary angiography. INDICATION: Angina and coronary artery disease. PROCEDURE IN DETAIL: After informed consent was obtained and after a detailed description of risks, benefits as well as alternative therapies, the patient elected to proceed with angiogram and angioplasty. The left femoral area was prepped and draped in normal sterile fashion. Left femoral artery was cannulated via modified Seldinger technique with placement of 6-Persian sheath. All catheters exchanged through this sheath. FINDINGS: Left ventriculogram was performed in standard 30-degree CARREON view reveals preserved cardiac wall motion, ejection fraction 50%. SELECTIVE CORONARY ANGIOGRAPHY: 1. Left main is with no significant angiographic disease. 2. Left anterior descending is totally occluded in the proximal mid vessel. 3. HERNANDES to the LAD is widely patent. Distal LAD is widely patent. 4. Left circumflex has previously placed stents in the OM as well as circumflex itself. The circumflex has 80% in-stent restenosis of the OM with 95% in-stent restenosis. 5. The right coronary artery has previously placed stents. Intravascular ultrasound reveals there is greater than 80% in-stent restenosis distally. PTCA STENT OF THE RCA: The stent used was a 2.5 x 12 mm Vu. Result was 0% residual stenosis throughout. PTCA STENT OF THE LEFT CIRCUMFLEX: The first obtuse marginal was addressed with a 2.75 x 8 mm [place]. The circumflex was held with a 2.5 balloon. Result was 0% residual stenosis. OVERALL IMPRESSION: Successful percutaneous transluminal coronary angioplasty stent of the RCA and circumflex going from 80% and 95% initial stenosis to 0% residual. TRANSINT:[id number] Voice Confirmation ID: [id number] DOCUMENT ID: [id number] OPERATIVE REPORT [id number] BRIAN THOMAS DEJUAN BALDERAS MD at 8294 CC: [id number] DICTATION DATE: 08/11/17 1049 MUSEUM SECURITY CHIEF: 08/11/17 1136 [facility] [address] [id number]
[2017-08-11] MEDS ORDERED: BYSTOLIC5 MG PO (07:40)
[2017-08-11 07:56] VITALS: BP 141/72; Ht 152.4 cm; Wt 58.6 kg
[2017-08-11 08:44] LABS: BASOPHILS 0.6 % (0-2); EOSINOPHILS 4.4 % (0-7); HEMATOCRIT 35.4 % (36.0-48.0); HEMOGLOBIN 11.3 g/dL (12-16); IMMATURE GRANULOCYTES 0.2 % (0-5); LYMPHOCYTES 15.7 % (15-50); MCHC 31.9 g/dL (31.0-37.0); MEAN PLATELET VOLUME 9.2 fL (7.4-10.4); MONOCYTES 15.1 % (2-11); PLATELET COUNT 330 10x3/uL (130-400); RBC 3.89 10x6/uL (4.00-5.40); RDW 14.9 % (11.5-14.5); WBC 4.8 10x3/uL (4.8-10.8)
[2017-08-11 09:11] LABS: CALC OSMOLALITY 281 mosm/kg (275-300); CALCIUM 8.8 mg/dL (8.5-10.1); CARBON DIOXIDE 23.4 mmol/L (21.0-32.0); CHLORIDE - SERUM 108 mmol/L (98-107); CREATININE - SERUM 0.8 mg/dL (0.6-1.3); GLUCOSE 90 mg/dL (74-106); POTASSIUM - SERUM 3.8 mmol/L (3.5-5.1); SODIUM 142 mmol/L (136-145); UREA NITROGEN 11 mg/dL (7-18); eGFR NON AFRICAN AMERICAN 76 mL/min (90-120)
[2017-08-11] MEDS ORDERED: BAYER CHEWABLE81 MG PO (10:55)
== END 2017-08-11 15:00 | disposition home or self-care (01) ==
LOC: D.CATH 07:26
PROVIDERS: Internal Medicine Interventional Cardiology
DX: I25.119 Atherosclerotic heart disease of native coronary artery with unspecified angina pectoris (principal); R06.09 Other forms of dyspnea; I10 Essential (primary) hypertension; Z01.812 Encounter for preprocedural laboratory examination
CPT/HCPCS: 93459; 92978; C9600 ×2

== ENCOUNTER 2017-10-19 08:19 | Outpatient (CLI) | payer MEDICARE, OTHER ==
[2017-08-11 07:56] VITALS: BMI 25.2
== END 2017-10-19 08:20 | disposition home or self-care (01) ==
LOC: D.MAMMO 08:19
DX: Z12.31 Encounter for screening mammogram for malignant neoplasm of breast (principal)

== ENCOUNTER 2017-11-09 10:09 | Outpatient (CLI) | payer MEDICARE, OTHER ==
[~2017-11-09] VITALS: Ht 152.4 cm; Wt 57.7 kg
[2017-11-09 10:35] VITALS: BP 128/81; Ht 152.4 cm; Wt 57.7 kg
== END 2017-11-09 11:30 | disposition home or self-care (01) ==
LOC: D.OPS 10:09
DX: M81.0 Age-related osteoporosis without current pathological fracture (principal)

== ENCOUNTER 2017-11-19 12:34 | Emergency (ER) | payer MEDICARE, OTHER ==
[~2017-11-19] VITALS: Ht 152.4 cm; Wt 57.7 kg
[2017-11-19 12:41] VITALS: Ht 152.4 cm; Wt 57.7 kg
[2017-11-19] MEDS ORDERED: EDARBI40 MG PO (12:44)
[2017-11-19 13:33] LABS: BASOPHILS 0.5 % (0-2); EOSINOPHILS 1.2 % (0-7); HEMATOCRIT 37.9 % (36.0-48.0); HEMOGLOBIN 12.8 g/dL (12-16); IMMATURE GRANULOCYTES 0.2 % (0-5); MCH 29.2 pg (26.0-34.0); MCHC 33.8 g/dL (31.0-37.0); MCV 86.3 fL (80.0-100.0); MEAN PLATELET VOLUME 8.7 fL (7.4-10.4); MONOCYTES 13.9 % (2-11); NEUTROPHILS 75.2 % (40-80); PLATELET COUNT 360 10x3/uL (130-400); RBC 4.39 10x6/uL (4.00-5.40); RDW 13.8 % (11.5-14.5); WBC 6.5 10x3/uL (4.8-10.8)
[2017-11-19 13:46] LABS: ALBUMIN 3.7 g/dL (3.4-5.0); ALT (SGPT) 35 U/L (10-68); CALC OSMOLALITY 251 mosm/kg (275-300); CALCIUM 8.6 mg/dL (8.5-10.1); CARBON DIOXIDE 26.8 mmol/L (21.0-32.0); CHLORIDE - SERUM 91 mmol/L (98-107); CREATININE - SERUM 0.7 mg/dL (0.6-1.3); GLUCOSE 85 mg/dL (74-106); POTASSIUM - SERUM 4.6 mmol/L (3.5-5.1); PROTEIN - SERUM 7.4 g/dL (6.4-8.2); SODIUM 125 mmol/L (136-145); UREA NITROGEN 14 mg/dL (7-18); eGFR NON AFRICAN AMERICAN 89 mL/min (90-120)
[2017-11-19 13:54] LABS: APPEARANCE CLEAR (CLEAR); BILIRUBIN NEGATIVE (NEGATIVE); COLOR YELLOW (YELLOW); GLUCOSE NEGATIVE (NEGATIVE); KETONE NEGATIVE (NEGATIVE); NITRITE NEGATIVE (NEGATIVE); PROTEIN NEGATIVE (NEGATIVE); UROBILINOGEN NORMAL (NORMAL)
[2017-11-19 13:57] LABS: BACTERIA FEW /hpf (NONE SEEN); EPITHELIAL CELLS 0-5 /hpf (0-5); RED CELLS - URINE 0-5 /hpf (0-5); WHITE CELLS - URINE 0-5 /hpf (0-5)
[2017-11-19 13:59] LABS: ALKALINE PHOSPHATASE 85 U/L (46-116); BILIRUBIN - TOTAL 0.56 mg/dL (0.2-1.3)
[2017-11-19 15:14] VITALS: BP 144/82
== END 2017-11-19 15:15 | disposition home or self-care (01) ==
LOC: D.ER 12:34
PROVIDERS: Family Medicine
DX: R51 Headache (principal); E87.1 Hypo-osmolality and hyponatremia; R11.2 Nausea with vomiting, unspecified; R42 Dizziness and giddiness; I10 Essential (primary) hypertension; I25.10 Atherosclerotic heart disease of native coronary artery without angina pectoris

== ENCOUNTER 2018-09-06 12:28 | Outpatient (CLI) | payer MEDICARE, BC ==
--- NOTE | 2018-08-15 10:39 | HP ---
PATIENT: BRIAN MOHAN MEDICAL RECORD: [id number] ACCOUNT: [id number] LOCATION:[place] : 52 ADMISSION DATE: 08/23/18 PCP: BENNY JARAMILLO MD HISTORY AND PHYSICAL EXAMINATION DIAGNOSES: 1. Unstable angina. 2. Coronary artery disease. 3. Previous multivessel percutaneous transluminal coronary angioplasty stent. 4. Hyperlipidemia. HISTORY OF PRESENT ILLNESS: Mrs. Mohan has had 1 week of increasing episodes of chest pain, chest discomfort compatible with angina just like that of her previous angina. Last cardiac intervention was in July of 2017. She unfortunately has been intolerant to antianginal medications in the past. She cannot tolerate beta blockers due to bradycardia even at low doses. She cannot tolerate long-acting nitrates secondary to headache and her blood pressure runs in the 110-120 range and we have tried Norvasc in the past that she cannot tolerate that due to hypotension. PHYSICAL EXAMINATION: GENERAL APPEARANCE: Well-nourished, well-developed, appears stated age. Level of distress, comfortable. PSYCHIATRIC: Mental status, alert, normal affect. Orientation, oriented to time, place and person. EYES: Lids and conjunctiva, noninjected. No discharge, no pallor. ENT: Lips, teeth, gums, normal dentition. Oropharynx, no cyanosis, no pallor. NECK: Carotid arteries, bilateral normal upstroke, no bruits, no thrills. JUGULAR VEINS: No jugular venous pressure or distention. CERVICAL LYMPH NODES: Nontender, nonenlarged. THYROID: Not enlarged. Nontender. No nodules. LUNGS: Respiratory effort, unlabored. CHEST: Normal curvature. No thoracic deformity. No chest wall tenderness. Percussion, resonant. Auscultation, clear. No wheezes, no rales, no rhonchi. CARDIOVASCULAR: Precordial exam, nondisplaced. No heaves or pericardial thrills. Rate and rhythm, regular. Heart sounds, normal S1, normal S2. No S3, no gallop, no rub. Systolic murmur, not heard. Diastolic murmur, not heard. EXTREMITIES: No cyanosis, no edema. Peripheral pulses, full and equal in all extremities, except as noted. No bruits appreciated. ABDOMEN: Soft, nondistended. Normal aorta. No bruit. Nontender. No masses. Liver, nontender, no hepatomegaly. Spleen, nontender, no splenomegaly. MUSCULOSKELETAL: No joint tenderness. No joint swelling. No erythema. NEUROLOGICAL: Normal gait, normal strength, normal tone. SKIN: Warm and dry. OVERALL IMPRESSION: Unstable angina, intolerant to medical therapy in the past. Her chest pain is escalating over the past week. It is just like that of her previous angina. She does have a history of multivessel coronary artery disease, most likely she has recurrent hemodynamically significant disease. We will proceed with coronary angiography. Further care depends on the findings of the angiography. TRANSINT:[id number] Voice Confirmation ID: [id number] DOCUMENT ID: [id number] HISTORY AND PHYSICAL [id number] BRIAN MOHAN JEFFREY MD at 1039 CC: [id number] DICTATION DATE: 08/14/18 1024 ELECTRICIAN ELEVATOR MAINTENANCE: 08/14/18 [id number] [place] [address]
[~2018-09-06] VITALS: Ht 152.4 cm; Wt 58.6 kg
[~2018-09-06 12:28] MED LIST changes: +EDARBI40 MG PO; +TOPAMAX50 MG PO
[2018-09-06 13:36] VITALS: BP 160/92; Ht 152.4 cm; Wt 58.6 kg
== END 2018-09-06 13:35 ==
LOC: D.OPS 12:28
PROVIDERS: ATTEND Family Medicine
DX: M18.0 Bilateral primary osteoarthritis of first carpometacarpal joints (principal)

== ENCOUNTER 2019-01-15 08:07 | Outpatient (CLI) | payer MEDICARE, BC ==
[2018-09-06 13:36] VITALS: BMI 25.2
== END 2019-01-15 23:59 | disposition home or self-care (01) ==
LOC: D.MAMMO 08:07
PROVIDERS: ATTEND Family Medicine
DX: Z12.31 Encounter for screening mammogram for malignant neoplasm of breast (principal)

== ENCOUNTER 2019-06-07 07:57 | Outpatient (CLI) | payer MEDICARE, BC ==
[~2019-06-07] VITALS: Ht 152.4 cm; Wt 56.4 kg
--- NOTE | ~2019-06-07 | HEMODYNAMI ---
PATIENT:BRIAN THOMAS MEDICAL RECORD: [id number] : 52 LOCATION:[facility] ADMISSION DATE: 06/07/19 Generatedon:06/07/201911:33 Patient name: BRIAN THOMAS Patient #: [id number] : 1950 Date of study: 06/07/2019 Page: Of Hemodynamic Procedure Report Patient Data Patient Demographics Procedure consent was obtained First Name: BRIAN Gender: Female Last Name: MARTHA : 1950 Middle Initial: KAREN Age: 68 year(s) Patient #: [id number] Race: SSN: [id number] Additional ID: [id number] Contact details [address]: [address] [place] [address] State: [place] City: [place] Zip code: [address] Past Medical History History of disease Date Diagnosis Comments CAD Allergies Allergen Reaction Date Comments Reported Other allergy 01/12/2015 Crestor Other allergy 09/14/2016 crestor Other allergy 08/11/2017 crestor Admission Admission Data Admission Date: 06/07/2019 Admission Time: 7:57 Arrival Date: 06/07/2019 Arrival Time: 10:00 Admit Source: Other Insurance Payor: Medicare, Private health insurance PSYCHIATRIC #: [id number] Height (in.): 59.84 BSA: 1.52 (m2) Height (cm.): 152 BMI: 24.24 (kg/m2) Weight (lbs.): 123.46 Weight (kg.): 56 Lab Results Lab Result Date: 06/07/2019 Lab Result Time: 0:00 Biochemistry Name Units Result Min Max BUN mg/dl 8 --(*---)-- 7 18 Creatinine mg/dl 0.8 --(-*--)-- 0.6 1.3 eGFR ml/min 76.47188 *-(----)-- 90 120 NONAFRICAN CBC Name Units Result Min Max Hemoglobin g/dl 11.5 *-(----)-- 13.5 17.5 Procedure Procedure Types Cath Procedure Diagnostic Procedure C [facility] w/Coronaries Sedation Charges Moderate Sedation up to 45 minutes PCI Procedure PTCA PTCA Initial Coronary Atherectomy Atherectomy w/PTCA Coronary Initial Hemochron ACT Test Peripheral Cath Diagnostic Procedure Occupational Therapy Technician Peripheral Procedures AFRO (Diagnostic) Procedure Description Procedure Date Procedure Date: 06/07/2019 Procedure Start Time: 10:53 Procedure End Time: 11:28 Procedure Staff Name Function Diego Harkins MD Performing Physician Jennifer Bermeo RT Monitor Clair Jeimy RT Scrub Nikhil Woodruff RN Nurse Procedure Data Cath Procedure Fluoroscopy Diagnostic fluoroscopy Total fluoroscopy Time: 0 time: 0 min min Diagnostic fluoroscopy Total fluoroscopy dose: 516 dose: 516 mGy mGy Contrast Material Contrast Material Type Amount (ml) Isovue 370 132 Entry Location Entry Primary Successful Side Size Upsize Upsize Entry Closure Succes sful Closure Location (Fr) 1 (Fr) 2 (Fr) Remarks Device Remarks Femoral Left 5 Fr 6 Fr Exoseal artery Short Estimated blood loss: 10 ml Diagnostic catheters Device Type Used For End Catheter Placement MULTIPACK Pigtail 5 Fr Procedure catheter MULTIPACK JL 4.0 5Fr Procedure catheter DIAGNOSTIC JL 3.5 5Fr Procedure catheter ([id number]) MULTIPACK 3DRC 5Fr Procedure catheter Procedure Complications No complications Procedure Medications Medication Administration Route Dosage Oxygen etCO2 Nasal cannula 2 l/min Lidocaine 2% added to field 20 Heparin Flush Bag added to field 2 bags (1000units/500ml NS) 0.9% NaCl I.V. 100 ml/hr Versed I.V. 2 mg Fentanyl I.V. 50 mcg Versed I.V. 1 mg Fentanyl I.V. 50 mcg Versed I.V. 1 mg Heparin Bolus I.V. 4000 units Zofran I.V. 4 mg Hemodynamics Rest BSA: 1.52 (m2) HGB: 11.5 (g/dl) O2 Consumption: Estimated: 141.68 (ml/min) O2 Co nsumption indexed: Estimated:93.21 (ml/min/m) Heart Rate: 71 (bpm) Snapshots Pre Cath Intra NCS Post Cath Vital Signs Time Heart Resp SPO2 etCO2 NIBP (mmHg) Rhythm Pain Sedation Rate (ipm) (%) (mmHg) Status Level (bpm) 10:08:59 67 20 100 0 189/92(123) NSR 0 (11) 10(A) , No pain 10:13:27 62 20 100 0 195/98(178) NSR 0 (11) 10(A) , No pain 10:18:00 72 19 100 16.8 196/104(125) NSR 0 (11) 10(A) , No pain 10:22:34 65 12 100 39.1 177/92(107) NSR 0 (11) 10(A) , No pain 10:27:00 65 14 97 26.8 184/90(143) NSR 0 (11) 10(A) , No pain 10:31:25 64 24 95 44.5 151/78(123) NSR 0 (11) 10(A) , No pain 10:35:43 70 13 95 0 128/77(111) NSR 0 (11) 10(A) , No pain 10:39:54 69 14 97 19.9 142/79(114) NSR 0 (11) 10(A) , No pain 10:44:12 70 12 97 22.2 150/77(117) NSR 0 (11) 10(A) , No pain 10:48:30 71 13 96 14.5 138/76(113) NSR 0 (11) 9(A) , No pain 10:52:40 73 11 96 48.3 130/80(101) NSR 0 (11) 9(A) , No pain 10:56:54 68 17 96 0 123/74(106) NSR 0 (11) 9(A) , No pain 11:01:06 80 14 95 0 124/72(102) NSR 0 (11) 9(A) , No pain 11:05:21 78 13 97 30.6 131/66(113) NSR 0 (11) 9(A) , No pain 11:09:36 80 14 96 0 127/72(102) NSR 0 (11) 9(A) , No pain 11:13:50 80 12 96 0 129/71(104) NSR 0 (11) 9(A) , No pain 11:18:02 78 12 98 2.3 133/76(107) NSR 0 (11) 9(A) , No pain 11:23:05 73 15 97 43.7 163/84(132) NSR 0 (11) 10(A) , No pain Medications Time Medication Route Dose Verified Delivered Reason Notes Effectiveness by by 9:20:01 Zofran I.V. 4 mg Diego Tejeda Per physician Shahana Woodruff RN 10:19:34 Oxygen etCO2 2 Diego Brooksie used for Nasal l/min Shahana Woodruff RN procedure cannula 10:19:42 Lidocaine 2% added 20ml Diegomyrna Cortez for local to vial Shahana Harkins MD anesthetic field 10:19:52 Heparin Flush added 2 Diego Diego used for Bag to bags Shahana Harkins MD procedure (1000units/500ml field NS) 10:20:01 0.9% NaCl I.V. 100 Diego Brooksie Per physician ml/hr Shahana Woodruff RN 10:40:33 Versed I.V. 2 mg Diego Brooksie for sedation Shahana Woodruff RN 10:40:41 Fentanyl I.V. 50 Diego Brooksie for sedation mcg Shahana Woodruff RN 10:45:17 Versed I.V. 1 mg Diego Brooksie for sedation Shahana Woodruff RN 10:45:21 Fentanyl I.V. 50 Diego Brooksie for sedation mcg Shahana Woodruff RN 10:56:19 Versed I.V. 1 mg Diego Brooksie for sedation Shahana Woodruff RN 11:05:28 Heparin Bolus I.V. 4000 Diego Brooksie for verif ied units Shahana Woodruff RN anticoagulation with dr harkins Procedure Log Time Note 9:03:12 Informed consent obtained and on chart 9:07:01 Arrival Date: 06/07/2019 10:00:00 AM 9:07:23 Admit Source: Other 9:07:26 Insurance Payor : Private health insurance, Medicare 9:07:42 Patient Height : 59.84 inches 9:07:46 Patient Weight : 123.46 lbs 9:08:46 Lab Result : eGFR NONAFRICAN 76.49738 ml/min 9:08:46 Lab Result : Hemoglobin 11.5 g/dl 9:08:46 Lab Result : BUN 8 mg/dl 9:08:46 Lab Result : Creatinine 0.8 mg/dl 9:08:52 Diagnostic Cath Status : Elective 9:20:01 Zofran 4 mg I.V. was administered by Nikhil Woodruff RN; Per physician; Verbal order read back and verified. 9:46:57 Procedure Status Elective Heart Cath (OP). 9:46:58 Time tracking: Regular hours (M-F 7:00 - 5:00) 9:47:02 Plan of Care:Hemodynamics will remain stable., Cardiac rhythm will remain stable., Comfort level will be maintained., Respiratory function will remain adequate., Patient/ family verbilizes understanding of procedure., Procedure tolerated without complication., Recovers from procedure without complications.. 9:47:05 Nikhil Woodruff RN sent for patient. Start room use. 9:57:40 Lab results completed and on chart. 9:57:54 Stress Test: yes; abnormal multivessel 9:57:57 Risk of Mortality: 0.2 9:58:01 Risk of blood transfusion: 1.5 9:58:04 Risk of ADDY: 2.1 10:00:30 Patient received from Pre/Post Procedure Room to CCL 1 Alert and oriented. Tansferred to table in Supine position. 10:00:32 Warm blankets applied, and nicholas hugger turned on for patient comfort. 10:00:32 Correct patient and procedure confirmed by team. 10:00:33 ECG and BP/O2 sat monitors applied to patient. 10:00:44 H&P Date Dictated: 05/27/2019 Within 30 days and on chart.. 10:00:46 Pre-procedure instructions explained to patient. 10:00:46 Pre-op teaching completed and patient verbalized understanding. 10:00:49 Family in waiting room. 10:00:50 Patient NPO since Midnight. 10:00:53 Alarms reviewed by R. N. 10:00:54 Sharps counted by scrub and verified by R.N. 10:01:17 Is the patient allergic to Iodine/contrast media? No. 10:01:19 Is patient on blood thinner?Yes 10:01:21 ACC The patient was administered the following blood thiners within the last 24 hours: ACCPlavix 10:01:24 Patient diabetic? No. 10:01:25 If diabetic: On Metformin? N/A 10:01:28 Patient not . Patient is over age 55. 10:01:29 ----Pre-sedation anethsthesia assessment.---- 10:07:46 Vital chart was started 10:07:52 Rhythm: sinus rhythm 10:07:54 Full Disclosure recording started 10:08:01 Previous problem with sedation/anesthesia? Yes NAUSEA 10:08:03 Snore? Yes 10:08:04 Sleep apnea? Yes 10:08:06 Opens mouth fully? Yes 10:08:07 Deviated septum? No 10:08:08 Sticks out tongue? Yes 10:08:10 Airway obstruction? No ? 10:08:13 Dentures? No ? 10:08:17 Pre procedure: right dorsailis pedis pulse Doppler 10:08:21 Pre procedure: left dorsailis pedis pulse Doppler 10:18:06 Patient pain scale 0/10 ?. 10:18:13 IV patent on arrival in left antecubital with 0.9% NaCl at [facility]. 10:18:18 Baseline sample Acquired. 10:18:32 Use device set Femoral Dx 10:18:33 ACIST Syringe (88721) opened to sterile field. 10:18:34 Bag Decanter (2002S) opened to sterile field. 10:18:34 Medline Cath Pack ([id number]) opened to sterile field. 10:18:35 ACIST Hand Control (01144) opened to sterile field. 10:18:36 ACIST Manifold (89297) opened to sterile field. 10:18:37 DIAGNOSTIC Multipack 5Fr catheter set (FP4956) opened to sterile field. 10:18:39 SHEATH 5FR [place] (PAV209) opened to sterile field. 10:18:42 FLASHALD Guide Wire (292-619) opened to sterile field. 10:19:34 Oxygen 2 l/min etCO2 Nasal cannula was administered by Nikhil Woodruff RN; used for procedure; Verbal order read back and verified. 10:19:42 Lidocaine 2% 20ml vial added to field was administered by Diego Harkins MD; for local anesthetic; Verbal order read back and verified. 10:19:52 Heparin Flush Bag (1000units/500ml NS) 2 bags added to field was administered by Diego Harkins MD; used for procedure; Verbal order read back and verified. 10:20:01 0.9% NaCl 100 ml/hr I.V. was administered by Nikhil Woodruff RN; Per physician; Verbal order read back and verified. 10:38:43 --------ALL STOP TIME OUT------ 10:38:43 Final Timeout: patient, procedure, and site verified with staff and physician. All members of the team are in agreement. 10:38:46 Bilateral groins site verified by team. 10:38:50 Fire Safety Assessment: A--An alcohol-based skin anteseptic being used preoperatively., C--Open oxygen or nitrous oxide is being used., D--An ESU, laser, or fiber-optic light is being used. 10:38:53 Physical assessment completed. ASA score P 2 - A patient with mild systemic disease as per Diego Harkins MD. 10:38:55 2) 60-89 Mildly reduced kidney function, and other findings (as for stage 1) point to kidney disease. 10:38:58 Maximum allowable contrast dose (3.7 X eGFR X 0.75)200 ml. 10:39:03 Sedation plan: IV Moderate Sedation Medication:Versed, Fentanyl 10:40:33 Versed 2 mg I.V. was administered by Nikhil Woodruff RN; for sedation; Verbal order read back and verified. 10:40:41 Fentanyl 50 mcg I.V. was administered by Nikhil Woodruff RN; for sedation; Verbal order read back and verified. 10:45:17 Versed 1 mg I.V. was administered by Nikhil Woodruff RN; for sedation; Verbal order read back and verified. 10:45:21 Fentanyl 50 mcg I.V. was administered by Nikhil Woodruff RN; for sedation; Verbal order read back and verified. 10:52:32 Procedure started. 10:53:06 Local anesthetic to right femoral artery with Lidocaine 2% by Diego Harkins MD.INITIAL ACCESS ONLY 10:54:28 UNABLE TO GAIN ACCESS RT GROIN GOING LT GROIN. 10:54:36 Local anesthetic to left femerol artery with Lidocaine 2% by Diego Harkins MD.ADDITIONAL ACCESS 10:55:35 A 5 Fr sheath was inserted into the Left Femoral artery 10:55:54 A MULTIPACK Pigtail 5 Fr catheter was advanced over the wire and used for Procedure. 10:56:19 Versed 1 mg I.V. was administered by Nikhil Woodruff RN; for sedation; Verbal order read back and verified. 10:57:17 LV gram done using CARREON 10:57:23 Injector settings: Ml/sec: 10, Volume: 20, 10:57:47 EF : 55 % 10:58:32 Left leg runoff performed. 10:59:07 Right leg runoff performed. 10:59:29 Abdominal Aortagram was performed. 10:59:51 A MULTIPACK JL 4.0 5Fr catheter was advanced over the wire and used for Procedure. 11:02:13 Catheter removed. 11:02:16 A DIAGNOSTIC JL 3.5 5Fr catheter ([id number]) was advanced over the wire and used for Procedure. 11:02:18 LCA angiography performed. 11:02:21 Catheter removed. 11:02:29 A MULTIPACK 3DRC 5Fr catheter was advanced over the wire and used for Procedure. 11:02:49 HERNANDES to LAD angiography performed. 11:03:46 Catheter removed. 11:03:47 Proceeding to intervention. 11:03:55 Sheath upsized to a 6 Fr Short. 11:04:04 Use device set SHAHANA PCI 11:04:06 INFLATOR Merit BasixCompak (ZC0842) opened to sterile field. 11:04:09 SHEATH 6FR [place] (AXA462) opened to sterile field. 11:04:13 CHOICE PT Extra Support 182cm wire ([id number]) opened to sterile field. 11:04:26 GUIDE 6FR EBU 3.0 catheter ([id number]) opened to sterile field. 11:04:38 6 Fr EBU 3.0 guide catheter was inserted over the wire 11:05:00 Pre PCI Site: [place] OM1 has 90% stenosis. 11:05:16 CHOICE ES 182 wire advanced. 11:05:18 Wire advanced across lesion. 11:05:28 Heparin Bolus 4000 units I.V. was administered by Nikhil Woodruff RN; for anticoagulation; verified with dr harkins Verbal order read back and verified. 11:07:04 Inflate balloon Inflation number: 1 A EUPHORA 3.0 x 15 Balloon ([id number]) was prepped and advanced across the 1st Ob Jaqueline , then inflated to 21 PATTIE for 0:00 (min:sec) . 11:07:12 Inflation number: 2 The EUPHORA 3.0 x 15 Balloon ([id number]) was reinflated across the 1st Ob Jaqueline , to 21 PATTIE for 0:00 (min:sec) . 11:07:39 Wire redirected to CIRC.. 11:07:56 Inflation number: 1 The EUPHORA 3.0 x 15 Balloon ([id number]) was reinflated across the Mid CX , to 17 PATTIE for 0:00 (min:sec) . 11:08:29 Wire redirected to OM. 11:10:47 LASER ELCA 0.9 Rx atherectomy catheter (130935) opened to sterile field. 11:12:08 Laser pass to OM1 with Fluence of 80 and Rate of 40. 11:16:42 Laser total pulses delivered: 3158 11:16:46 Laser total treatment time: 1 minutes 0.18 seconds 11:18:56 Laser catheter removed. 11:19:45 Wire removed. 11:19:46 Guide catheter removed. 11:19:54 EXOSEAL 6Fr (EX600) opened to sterile field. 11:20:02 Sheath removed intact; hemostasis achieved with Exoseal to the Left Femoral artery. 11:20:09 Fluoroscopy time 00.00 minutes. 11:20:23 Dose Area Product 83609 mGy/cm. 11:20:25 Procedure ended.(Physican Out) 11:20:57 Flurop Dose total: 516 11:20:57 Fluoroscopy dose: 516 mGy 11:21:08 Contrast amount:Isovue 370 132ml. 11:21:12 Maximum allowable dose exceeded? No. 11:21:13 Sharps counted by scrub and verified by R.N. 11:21:21 Post-op/insertion site Right Femoral artery dressed using a Bandaid. 11:21:26 Post-op/insertion site Left Femoral artery dressed using a 4 x 4 and Tegaderm. 11:21:28 Post Procedure Pulses reassessed and unchanged 11:21:33 Post procedure: right dorsailis pedis pulse 1+ Palpable, but thready & weak; easily obliterated. 11:21:37 Post-procedure physical assessment completed. ASA score P 2 - A patient with mild systemic disease as per Diego Harkins MD. 11:21:40 Post procedure rhythm: unchanged. 11:21:43 Estimated blood loss: 10 ml 11:21:45 Post procedure instruction explained to patient.Patient verbalizes understanding. 11:21:45 Patient needs reinforcement of post procedure teaching. 11:23:10 Procedure type changed to Cath procedure, Diagnostic procedure, LHC, LHC w/Coronaries, Sedation Charges, Moderate Sedation up to 45 minutes, PCI procedure, PTCA, PTCA Initial, Coronary Atherectomy, Atherectomy w/PTCA Coronary Initial, Hemochron ACT Test, Peripheral Cath Diagnostic Procedure, Occupational Therapy Technician Peripheral Procedures, AFRO (Diagnostic) 11:23:52 Procedure and supply charges have been captured, reviewed, submitted and are correct. 11:23:56 Procedure Complication : No complications 11:24:[address] [facility] Findings: MVD- PCI performed (see procedure note) 11:24:02 Operative report dictated upon procedure completion. 11:24:02 See physician's report for complete and final results. 11:24:05 Report given to Pre/Post Procedure Room. 11:24:10 Patient transfered to Pre/Post Procedure Room with Stretcher. 11:25:16 Vital chart was stopped 11::28 ACT drawn and resulted at 262 seconds. (normal therapeutic range 180-240 seconds). 11:28:26 Procedure ended. 11:28:26 Full Disclosure recording stopped 11:29:01 ACC-PCI Only Patient was given prescriptions, or instructed by Diego Harkins MD to start/continue the following medications upon discharge: Plavix 11:29:02 End room use (Document Last) Intervention Summary Intervention Notes Time ActionType Lesion and Equipment Action# Pressure Duration Attributes Used 11:07:04 Inflate 1st Ob Jaqueline EUPHORA 1 21 00:00 balloon 3.0 x 15 Balloon ([id number]) 11:07:12 Reinflate 1st Ob Jaqueline EUPHORA 2 21 00:00 balloon 3.0 x 15 Balloon ([id number]) 11:07:56 Reinflate Mid CX EUPHORA 1 17 00:00 balloon 3.0 x 15 Balloon ([id number]) Device Usage Item Name Manufacture Quantity Catalog Number Hospital Part Current Minim al Lot# / Charge Number Stock Stock Serial# Code ACIST Acist 1 32374 217372 509270 427339 20 Syringe Mayday PAC (08305) Systems Inc Bag Microtek 1 500800 70499 958259 5 Decanter Medical Inc. () Medline Medline 1 [id number] 947651 70892 503016 5 Cath Pack ([id number]) ACIST Hand Acist 1 14725 351886 326824 841162 5 Control Medical (99752) Systems Inc ACIST Acist 1 35979 332132 047735 448672 5 Manifold Medical (17782) Systems Inc DIAGNOSTIC Cardinal 1 [id number] 176869 06878 844622 30 Multipack Prima Solutions 5Fr catheter set (LP6981) SHEATH 5FR Terumo 1 ZTV193 395428 061077 262632 5 [place] (WAQ093) EMERALD Cardinal 1 502-455 496638 672061 079306 5 Guide Wire Health (502-455) MULTIPACK Cardinal 1 311216 5 Pigtail 5 Health Fr catheter MULTIPACK Cardinal 1 510143 5 JL 4.0 5Fr Health catheter DIAGNOSTIC Cardinal 1 [id number] 208061 032368 716875 5 JL 3.5 5Fr Health catheter (643207P) MULTIPACK Cardinal 1 732309 5 3DRC 5Fr Health catheter INFLATOR Merit 1 TU8429 552169 202484 682461 15 [employer] BasixCompak (HA1593) SHEATH 6FR Terumo 1 GPC290 880069 527540 288982 40 [place] (JHH498) CHOICE PT [place] 1 [id number] 105962 538208 778873 5 Extra Scientific Support 182cm wire ([id number]) GUIDE 6FR Medtronic 1 [id number] 820982 44826 136109 0 EBU 3.0 catheter (HS0AMI46) EUPHORA 3.0 Medtronic 1 [id number] 807168 480324 247940 5 [id number] x 15 Balloon ([id number]) LASER ELCA Crissy 1 110-004 793739 045134 814430 5 0.9 Action [employer] atherectomy (784555) catheter (219694) EXOSEAL 6Fr Cardinal 1 EX600 163837 020383 392496 10 (EX600) Health Signature Audit [place] Stage Time Signature Unsigned Intra-Procedure 06/07/2019 Jennifer Bermeo 11:31:47 AM RT(R) Intra-Procedure 06/07/2019 Nikhil Woodruff RN 11:33:04 AM Intra-Procedure 06/07/2019 Diego Harkins 11:33:[address] [address]
[2019-06-07] MEDS ORDERED: LISINOPRIL-HCT1 EAC4 PO (08:21)
[2019-06-07] MEDS ORDERED: MERIBIN5 MG PO (08:24)
[2019-06-07] MEDS ORDERED: LIPITOR80 MG PO (08:24)
[2019-06-07 08:34] VITALS: BP 160/79; Ht 152.4 cm; Wt 56.4 kg
[2019-06-07 08:44] LABS: BASOPHILS 0.5 % (0-2); EOSINOPHILS 2.9 % (0-7); HEMATOCRIT 36.1 % (36.0-48.0); HEMOGLOBIN 11.5 g/dL (12-16); LYMPHOCYTES 20.7 % (15-50); MCH 28.5 pg (26.0-34.0); MCHC 31.9 g/dL (31.0-37.0); MCV 89.4 fL (80.0-100.0); MEAN PLATELET VOLUME 8.9 fL (7.4-10.4); NEUTROPHILS 66.9 % (40-80); PLATELET COUNT 358 10x3/uL (130-400); RBC 4.04 10x6/uL (4.00-5.40); RDW 15.1 % (11.5-14.5); WBC 3.8 10x3/uL (4.8-10.8)
[2019-06-07 08:56] LABS: ALT (SGPT) 30 U/L (10-68); CALC OSMOLALITY 280 mosm/kg (275-300); CALCIUM 9.4 mg/dL (8.5-10.1); CARBON DIOXIDE 31.4 mmol/L (21.0-32.0); CHLORIDE - SERUM 106 mmol/L (98-107); CHOL - HDL RATIO 2.3 ratio (2.3-4.1); CHOLESTEROL, TOTAL 166 mg/dL (0-200); CREATININE - SERUM 0.8 mg/dL (0.6-1.3); GLUCOSE 93 mg/dL (74-106); HDL CHOLESTEROL 73 mg/dL (32-96); LDL CHOLESTEROL 79 mg/dL (0-100); LDL-HDL RATIO 1.1 ratio (1.5-3.5); POTASSIUM - SERUM 3.7 mmol/L (3.5-5.1); SODIUM 142 mmol/L (136-145); TRIGLYCERIDE 72 mg/dL (30-200); UREA NITROGEN 8 mg/dL (7-18); eGFR NON AFRICAN AMERICAN 76 mL/min (90-120)
--- NOTE | 2019-06-07 11:40 | NUR ---
PT RECEIVED VIA STRETCHER FROM WELDER HELPER FOR RECOVERY. PT VERY DROWSY BUT VERBALLY AROUSABLE. PT DENIES PAIN OR DISCOMFORT. IV PATENT INFUSING L ARM PER ORDERS. PT PLACED ON CARDIAC MONITORS AND O2 VIA NC AT 2L. HR NSR 69, BP 175/95, RR 11, SAT 100. R GROIN W BANDAID FROM INITIAL STICK WHICH WAS UNSUCCESSFUL. NO BLEEDING NOTED. 6FR EXOCELE TO L GROIN, DRESSING CDI NO S/S HEMATOMA NOTED. LEGS PINK AND WARM, PEDAL PULSES AUDIBLE W DOPPLER X4. PT INSTRUCTED TO KEEP HEAD FLAT AND LEGS STRAIGHT, SHE VERBALIZED UNDERSTANDING. CALL LIGHT IN REACH, AT BS
--- NOTE | 2019-06-07 12:00 | NUR ---
PT RESTING W/O COMPLAINTS. SHE IS AWAKE AND ALERT. R GROIN W/O BLEEDING OR S/S HEMATOMA. R GROIN SOFT, NO S/S HEMATOMA. PEDAL PULSES PALPABLE X4. VSS. CALL LIGHT IN REACH. DR BALDERAS BS TALKING W PT AND REGARDING PROCEDURE RESULTS AND PLAN OF CARE.
--- NOTE | 2019-06-07 12:45 | NUR ---
PT RESTING W EYES CLOSED, VSS. R AND L GROIN BANDAGES CDI NO S/S HEMATOMA NOTED. CALL LIGHT IN REACH, REMAINS AT BS. TOLERATED PO FOOD AND FLUIDS W/O NAUSEA.
--- NOTE | 2019-06-07 13:15 | NUR ---
PT RESTING COMFORTABLY W AT BS. R & L GROINS SOFT, DRESSING CDI NO S/S HEMATOMA NOTED. VSS. CALL LIGHT IN REACH. PT DENIES PAIN OR NEEDS AT THIS TIME
--- NOTE | 2019-06-07 13:45 | NUR ---
PT SLEEPING, R AND L GROIN SOFT, NO S/S BLEEDING OR HEMATOMA NOTED. VSS. CALL LIGHT IN REACH, REMAINS AT BS.
--- NOTE | 2019-06-07 14:25 | NUR ---
PT DOING WELL, BOTH GROINS SOFT NO BLEEDING OR S/S HEMATOMA NOTED. LEGS PINK AND WARM. VSS. PT DENIES PAIN OR NEEDS. HOB ELEVATED SLIGHTLY. CALL LIGHT IN REACH, REMAINS AT BS
--- NOTE | 2019-06-07 14:49 | NUR ---
NO CHANGE IN CONDITION, PT DENIES PAIN OR NEEDS. R AND L GROIN SOFT, NO S/S HEMATOMA. CALL LIGHT IN REACH.
--- NOTE | 2019-06-07 15:10 | NUR ---
R AND L GROIN SOFT, DRESSING CDI NO S/S HEMATOMA NOTED. IV REMOVED W CATH INTACT, MONITORS AND O2 REMOVED. DISCHARGE INSTRUCTIONS REVIEWED W PT AND BOTH VERBALIZED UNDERSTANDING. PT UP TO DRESS FOR DISCHARGE.
--- NOTE | 2019-06-07 15:17 | NUR ---
PT AMBULATED TO BR, VOIDING W/O DIFFICULITY. PT THEN DISCHARGED TO WAITING IN PRIVATE VEHICLE. PT HAD ALL BELONGINGS AND DISCHARGE PAPERWORK.
--- NOTE | 2019-06-10 11:54 | OP ---
PATIENT NAME: BRIAN THOMAS MEDICAL RECORD: [id number] :52 LOCATION:D.CAT ADMISSION DATE: SURGEON: DEJUAN BALDERAS MD DATE OF OPERATION: 06/07/2019 PROCEDURES: 1. Laser atherectomy, PTCA, left circumflex first obtuse marginal. 2. PTCA left circumflex. 3. Left heart catheterization. 4. Selective coronary angiography. 5. Left ventriculogram. INDICATION: Angina and coronary artery disease. PROCEDURE IN DETAIL: After informed consent was obtained and after a detailed description of risks, benefits as well as alternative therapies, the patient elected to proceed with angiogram and angioplasty. The right femoral area was prepped and draped in normal sterile fashion. Right femoral artery was cannulated via modified Seldinger technique with placement of 6-Nepali sheath. All catheters exchanged through this sheath. FINDINGS: Left ventriculogram performed in standard 30-degree CARREON view, reveals good cardiac wall motion, ejection fraction estimated 60%. SELECTIVE CORONARY ANGIOGRAPHY: 1. Left main is with no significant angiographic disease. 2. Left anterior descending is slowed occluded. 3. HERNANDES to the LAD is widely patent. Distal LAD is widely patent. 4. Left circumflex has stents in the circumflex and first obtuse marginal and the first obtuse marginal has 90% in-stent restenosis. 5. The right coronary has previously placed stents, these are widely patent with no significant restenosis. No disease elsewise of the RCA or its branches. PTCA laser atherectomy of the first obtuse marginal 0.9 laser catheter was addressed to the first obtuse marginal. Multiple passes were made. PTCA was made with a 3-0 balloon. This caused plaque shift into the circumflex. The circumflex was ballooned with a 3.0 balloon. Result was 0% residual throughout. OVERALL IMPRESSION: Successful PTCA laser atherectomy of the first obtuse marginal of the circumflex going from 90% initial stenosis to 0% residual. TRANSINT:[id number] Voice Confirmation ID: [id number] DOCUMENT ID: [id number] DEJUAN BALDERAS MD at 1154 CC: [id number] DICTATION DATE: 06/07/19 1123 FLIGHT INSTRUCTOR: 06/07/192105 [facility] CLI 06/07/19 [place] [id number]
== END 2019-06-07 15:20 | disposition home or self-care (01) ==
LOC: D.CATH 07:57
PROVIDERS: ATTEND Internal Medicine Interventional Cardiology
DX: I25.119 Atherosclerotic heart disease of native coronary artery with unspecified angina pectoris (principal); E78.5 Hyperlipidemia, unspecified; I10 Essential (primary) hypertension; R06.00 Dyspnea, unspecified

== ENCOUNTER → 2019-09-17 12:04 | Outpatient (CLI) | payer MEDICARE, BC ==
[2019-06-07 08:34] VITALS: BMI 24.2
[~2019-09-17 12:04] MED LIST changes: +HYDROCODON-ACE1 EA10 PO; +LISINOPRIL-HCT1 EAC4 PO; +MERIBIN5 MG PO; +VITAMIN D5000 UNI1 PO
== END | disposition home or self-care (01) ==
LOC: D.LABREF 12:04
PROVIDERS: ATTEND Internal Medicine Pulmonary Disease
DX: Z11.59 Encounter for screening for other viral diseases (principal)

== ENCOUNTER 2019-09-19 05:37 | Day surgery (SDC) | payer MEDICARE, BC ==
[2019-09-17 09:18] LABS: HEMOGLOBIN 12.3 g/dL (12-16); MCH 28.7 pg (26.0-34.0); MCHC 31.5 g/dL (31.0-37.0); MCV 90.9 fL (80.0-100.0); MEAN PLATELET VOLUME 8.7 fL (7.4-10.4); RBC 4.29 10x6/uL (4.00-5.40); RDW 15.1 % (11.5-14.5); WBC 5.1 10x3/uL (4.8-10.8)
[~2019-09-19] VITALS: Ht 152.4 cm; Wt 57.2 kg
--- NOTE | ~2019-09-19 | OP ---
PATIENT NAME: BRIAN THOMAS MEDICAL RECORD: [id number] :52 LOCATION:[facility] ADMISSION DATE: SURGEON: CASPER BETH MD DATE OF OPERATION: 09/19/2019 PREOPERATIVE DIAGNOSIS: Lumbar spinal stenosis at L4-L5 with neurogenic claudication. POSTOPERATIVE DIAGNOSIS: Lumbar spinal stenosis at L4-L5 with neurogenic claudication. PROCEDURE: Right L4-L5 lumbar laminectomy, medial facetectomy and foraminotomy at L4-L5 with METRx retractor and microscopic illumination with sublaminar decompression at L4-L5 on the left. SURGEON: Casper Beth MD DESCRIPTION AND TECHNIQUE: After induction of general endotracheal anesthesia, the patient was rolled prone on a Aguilar frame. Lumbar spine was prepped and draped in usual sterile fashion. Fluoroscopic x-ray and spinal needle localized the L4-L5 interspace on the right side. After infiltration of 1:100,000 epinephrine with 1% lidocaine, a stab incision was created with a #11 blade and series of dilators were used to advance a METRx retractor at the L4-L5 interspace on the right side. The level was confirmed with fluoroscopic x-ray. A microscope and Midas Ben drill were used to perform a laminectomy, medial facetectomy, and foraminotomy at L4-L5 on the right. Hypertrophied ligamentum flavum was removed with Cloward rongeurs. This decompressed the right L4 and L5 nerve roots. Next, the spinous process at L4 and L5 were undermined with the Midas Ben drill and microscope. Hypertrophied ligamentum flavum was removed with Cloward rongeurs. The opposite neural foramen was opened with a Cloward rongeurs to create a foraminotomy. Following this, both L4 and L5 nerve roots were decompressed well. Meticulous hemostasis was maintained throughout the wound. Wound was irrigated with copious amounts of Ancef irrigant solution. The retractor was removed. The fascia was closed with 2-0 Vicryl suture. Subdermal layer was closed with 3-0 Vicryl suture. The skin was closed with sugar. A sterile dressing was applied to the wound. The patient was awakened in good condition, taken to recovery. All counts were reported as correct. Estimated blood loss was minimal. TRANSINT:[id number] Voice Confirmation ID: [id number] DOCUMENT ID: [id number] CASPER BETH MD CC: [id number] DICTATION DATE: 10/14/19 0857 [facility] OFFICE MANAGER: 10/14/19 1125 [facility] [place] 09/19/19 [id number] [place] [address]
[~2019-09-19 05:37] MED LIST changes: -HYDROCODON-ACE1 EA10 PO
[2019-09-19 06:02] VITALS: BP 133/91; Ht 152.4 cm; Wt 57.2 kg
--- NOTE | 2019-09-19 09:49 | NUR ---
0945 OPA DISCONTINUED, PATIENT AROUSABLE AND MAINTAINING PATEN AIRWAY
[2019-09-19] MEDS ORDERED: HYDROCODON-ACE1 EA10 PO (10:23)
--- NOTE | 2019-09-19 12:30 | NUR ---
1132-VSS.NO DISTRESS,NO N/V. PAIN 09/24. ADMINISTERED NORCO 10/325MG 1 BY MOUTH. DRESSING TO BACK CDI. REVIEWED POST OPERATIVE INSTRUCTIONS AND FOLLOW UP APPOINTMENT.VERBALIZED UNDERSTANDING. HAS NOT VOIDED.
--- NOTE | 2019-09-19 12:32 | NUR ---
1215-AMBULATED TO RESTROOM AND VOIDED WITHOUT COMPLICATIONS. VSS.PAIN SUBSIDED 07/25.REMOVED IV WITH CATH INTACT,DISPOSED INTO SHARPS,COVERED WITH MEDIPORE TAPE.
--- NOTE | 2019-09-19 12:33 | NUR ---
1225-PT DRESSED.VSS.NO DISTRESS,NO N/V.DRESSING TO BACK CDI. PAIN 06/24.ESCORTED OUT VIA W/C WITH SPOUSE AWAITING TO DRIVE HOME.
== END 2019-09-19 12:25 | disposition home or self-care (01) ==
LOC: D.OPS 05:37 → D.PAN 07:30 → D.OPS 07:30 → D.PAN 10:00 → D.OPS 12:25
PROVIDERS: Anesthesiology; ATTEND Neurological Surgery
DX: M48.061 Spinal stenosis, lumbar region without neurogenic claudication (principal); M54.16 Radiculopathy, lumbar region; M54.5 Low back pain; K21.9 Gastro-esophageal reflux disease without esophagitis; I10 Essential (primary) hypertension; E78.2 Mixed hyperlipidemia; E78.5 Hyperlipidemia, unspecified